=== PATIENT | female | born 1955 | race Caucasian/White ===

== ENCOUNTER 2017-05-09 11:43 | Inpatient (IN) | payer OTHER, MEDICARE ==
[~2017-05-09] VITALS: Ht 157.5 cm; Wt 88.2 kg
[~2017-05-09 11:43] MED LIST: CLON1TAB3; FLUO10CA48; FOLI1TAB7; HYDR-4332; LISI-461 PO; METH2.5T PO; PRED-301 PO
[2017-05-09] MEDS ORDERED: SODIUM CHLORIDE 0.9% 1000ML 1,000 ML IV STA (12:33)
[2017-05-09] MEDS ORDERED: ONDANSETRON INJ 2 MG/ML 2 ML VIAL IV STA (12:33)
[2017-05-09] MEDS ORDERED: MoRPHine SULFATE 10 MG/ML CARP/VIAL IV STA ×2 (12:33→14:19)
[2017-05-09 12:42] LABS: HEMATOCRIT 39.6 % (37-47); MEAN CELL VOLUME 94.3 fL (80-100); MEAN CORPUSCULAR HGB CONC 36.1 g/dl (32-36); MEAN PLATELET VOLUME 10.1 fL (7.4-10.4); PLATELET COUNT 264 K/uL (130-400)
[2017-05-09 12:58] LABS: BUN/CREATININE RATIO 28.6 (10-20); CALCIUM 9.1 mg/dl (8.5-10.1); CREATININE 0.74 mg/dl (0.60-1.20); POTASSIUM 3.1 mmol/L (3.5-5.1)
[2017-05-09] MEDS ORDERED: OPTIRAY 320 IV PRN (13:00)
[2017-05-09 13:18] LABS: BASO % 0.3 %; BASO ABS # 0.06 K/uL (0-0.2); COMPLETE YES; DOHLE BODIES 1+; EOS % 0.6 %; IG% 1.3 %; LYMPH % 16.4 %; MONO % 16.6 %; NEUT % 64.8 %; TOXIC GRANULATION 1+; VACUOLIZATION 1+
[2017-05-09] MEDS ORDERED: IBUP-103 PO (13:35)
[2017-05-09] MEDS ORDERED: FSMD/70 PO (13:35)
--- NOTE | 2017-05-09 14:29 | EMERGENCY ROOM VISIT NOTE ---
ED Visit Note First contact with patient: 11:54 I have seen and examined this patient with Anatoly Hagen and generally agree with the treatment plan as discussed. Current/Historical Medications Scheduled Alendronate/Cholecalciferol (Fosamax+D 70MG/2800 Iu), 1 TABLET PO WK Folic Acid (Folvite), 1 TAB .ROUTE DAILY Scheduled PRN Ibuprofen Tab (Advil), 400 MG PO BID PRN for Pain Miscellaneous Medications Lisinopril (Zestril), 10 MG PO Methotrexate (Methotrexate), 2.5 MG PO Prednisone (Prednisone), 5 MG PO Allergies Coded Allergies: No Known Allergies (Unverified , 05/09/17) Vital Signs Date Time Temp Pulse Resp B/P (MAP) Pulse Ox O2 Delivery O2 Flow Rate FiO2 05/09/17 13:02 98 16 158/83 98 Room Air 05/09/17 12:05 109 05/09/17 11:45 36.6 106 20 139/83 96 Room Air Laboratory Results 05/09/17 12:30 Red Blood Count 4.20, Mean Corpuscular Volume 94.3, Mean Corpuscular Hemoglobin 34.0, Mean Corpuscular Hemoglobin Concent 36.1, Mean Platelet Volume 10.1, Neutrophils (%) (Auto) 64.8, Lymphocytes (%) (Auto) 16.4, Monocytes (%) (Auto) 16.6, Eosinophils (%) (Auto) 0.6, Basophils (%) (Auto) 0.3, Neutrophils # (Auto ) 11.85, Lymphocytes # (Auto) 3.00, Monocytes # (Auto) 3.04, Eosinophils # (Auto ) 0.11, Basophils # (Auto) 0.06 05/09/17 12:30 Test 05/09/17 12:30 05/09/17 12:33 White Blood Count 18.30 K/uL (4.8-10.8) Red Blood Count 4.20 M/uL (4.2-5.4) Hemoglobin 14.3 g/dL (12.0-16.0) Hematocrit 39.6 % (37-47) Mean Corpuscular Volume 94.3 fL (80-100) Mean Corpuscular Hemoglobin 34.0 pg (25-34) Mean Corpuscular Hemoglobin Concent 36.1 g/dl (32-36) Platelet Count 264 K/uL (130-400) Mean Platelet Volume 10.1 fL (7.4-10.4) Neutrophils (%) (Auto) 64.8 % Lymphocytes (%) (Auto) 16.4 % Monocytes (%) (Auto) 16.6 % Eosinophils (%) (Auto) 0.6 % Basophils (%) (Auto) 0.3 % Neutrophils # (Auto) 11.85 K/uL (1.4-6.5) Lymphocytes # (Auto) 3.00 K/uL (1.2-3.4) Monocytes # (Auto) 3.04 K/uL (0.11-0.59) Eosinophils # (Auto) 0.11 K/uL (0-0.5) Basophils # (Auto) 0.06 K/uL (0-0.2) RDW Standard Deviation 42.1 fL (36.4-46.3) RDW Coefficient of Variation 12.3 % (11.5-14.5) Immature Granulocyte % (Auto) 1.3 % Immature Granulocyte # (Auto) 0.24 K/uL (0.00-0.02) Toxic Granulation 1+ Toxic Vacuolation 1+ Dohle Bodies 1+ Anion Gap 9.0 mmol/L (3-11) Est Creatinine Clear Calc Drug Dose 79.5 ml/min Estimated GFR () 100.6 Estimated GFR (Non- 86.8 BUN/Creatinine Ratio 28.6 (10-20) Calcium Level 9.1 mg/dl (8.5-10.1) Total Bilirubin 0.5 mg/dl (0.2-1) Direct Bilirubin 0.2 mg/dl (0-0.2) Aspartate Amino Transf (AST/SGOT) 21 U/L (15-37) Alanine Aminotransferase (ALT/SGPT) 24 U/L (12-78) Alkaline Phosphatase 121 U/L (45-117) Total Protein 7.0 gm/dl (6.4-8.2) Albumin 2.8 gm/dl (3.4-5.0) Lipase 63 U/L (73-393) Medications Administered Medications (Trade) Dose Ordered Sig/Maryam Route Start Time Stop Time Status Last Admin Dose Admin Sodium Chloride 1,000 ml @ 999 mls/hr Q1H1M STAT IV 05/09/17 12:33 05/09/17 13:33 DC 05/09/17 13:00 999 MLS/HR Ondansetron HCl (Zofran Inj) 4 mg NOW STAT IV 05/09/17 12:33 05/09/17 12:36 DC 05/09/17 12:57 4 MG Morphine Sulfate (MoRPHine SULFATE INJ) 6 mg NOW STAT IV 05/09/17 12:33 05/09/17 12:36 DC 05/09/17 12:58 6 MG Departure Information Referrals Maxwell Alvarado M.D. (PCP) Forms HOME CARE DOCUMENTATION FORM, IMPORTANT VISIT INFORMATION Patient Instructions [facility]
[2017-05-09 15:03] LABS: URINE APPEARANCE CLOUDY (CLEAR); URINE COLOR ORANGE; URINE EPITHELIAL CELL AUTO >30 /lpf (0-5); URINE NITRITE POS (NEG); URINE SPECIFIC GRAVITY 1.034 (1.000-1.030); UROBILINOGEN NEG (NEG)
[2017-05-09 15:06] LABS: MANUAL MICROSCOPIC REQUIRED? NO; REVIEW REQ? YES; URINE BILIRUBIN NEG (NEG)
[2017-05-09 15:14] LABS: URINE MUCUS PRESENT (NONE PRSENT)
[2017-05-09] MEDS ORDERED: SODIUM CHLORIDE 0.9% 1000ML 1,000 ML IV ONE (15:15)
--- NOTE | 2017-05-09 15:16 | DIAGNOSTIC IMAGING REPORT ---
ABDOMEN AND PELVIS CT WITH IV AND ORAL CONTRAST CT DOSE: 754.61 mGy.cm HISTORY: Fever. Generalized abdominal pain. TECHNIQUE: Multiaxial CT images of the abdomen and pelvis were performed following the use of intravenous and oral contrast. A dose lowering technique was utilized adhering to the principles of ALARA. COMPARISON STUDY: None. FINDINGS: Bibasilar linear densities consistent with subsegmental atelectasis. No pneumoperitoneum. No pneumatosis. Postoperative changes within the proximal left femur. Small fat-containing right-sided Bochdalek hernia. Hepatic steatosis. The gallbladder, spleen, adrenal glands, pancreas, and right kidney are unremarkable. There is a 6 mm hypodense lesion within the left kidney which is too small to characterize. No hydronephrosis. No retroperitoneal lymphadenopathy. Moderate calcified plaque within the normal caliber abdominal aorta. No evidence for bowel obstruction. Normal appendix. The bladder is unremarkable. Hysterectomy. Colonic diverticulosis. Mild diffuse thickening throughout the majority of the colon from the cecum to the splenic flexure. There appears be mild mucosal hyperenhancement within the descending colon and sigmoid colon also likely representing an early inflammatory process. Therefore, this is consistent with a pancolitis. IMPRESSION: 1. Pancolitis. This is likely due to an infectious or inflammatory process. 2. Normal appendix. 3. No evidence for bowel obstruction. 4. Hepatic steatosis. 5. Hysterectomy. Electronically signed by: Kevin Bajwa M.D. 05/09/2017 3:15 PM Dictated Date/Time: 05/09/2017 3:09 PM
[2017-05-09] MEDS ORDERED: CEFTRIAXONE SOD INJ 1 GM ADDVIAL IV STA (15:35)
[2017-05-09] MEDS ORDERED: METRONIDAZOLE 500MG / 100ML NSS IV STA (15:35)
[2017-05-09] MEDS ORDERED: ONDANSETRON INJ 2 MG/ML 2 ML VIAL IV PRN (16:30)
[2017-05-09] MEDS ORDERED: ALEN70TA4 PO (16:39)
[2017-05-09] MEDS ORDERED: MULT-506 PO (16:39)
[2017-05-09] MEDS ORDERED: ONDA4TAB65 PO (16:39)
[2017-05-09] MEDS ORDERED: IMD/2 PO (16:39)
[2017-05-09] MEDS ORDERED: ABAT250I (16:39)
[2017-05-09] MEDS ORDERED: LSN/10125 PO (16:39)
[2017-05-09 17:27] LABS: MAGNESIUM 2.1 mg/dl (1.8-2.4)
[2017-05-09 17:45] VITALS: BP 160/83; PULSE 98; TEMP 36.8; O2SAT 94
[2017-05-09] MEDS ORDERED: MoRPHine SULFATE 4 MG/ML 1 ML CARP\\VIAL IV PRN (17:45)
--- NOTE | 2017-05-09 17:47 | History and Physical ---
History & Physical Date & Time of Service: May 09, 2017 ~ 16:00 Chief Complaint: Abdominal Pain, Diarrhea, Fever Primary Care Physician: Maxwell Alvarado M.D. History of Present Illness 61 year old female who presents to the ER with abdominal pain, diarrhea, and fever. Patient reports symptoms have been present for the past 6 days. She was seen by her PCP a few days ago who prescribed her Zofran and Imodium. She has not had any relief in her symptoms. Patient reports her appetite has been poor due to the abdominal pain and she denies nausea and vomiting. Reports that anything she would take anything by mouth she would have crampy abdominal pain and diarrhea. She reports her temperature at her PCP appointment was 101. She reports diarrhea has been watery and she denies BRBPR and dark tarry stools. She denies any recent travel or sick contacts. Patient reports she has been having intermittent chest pain for the past several months. She reports it is located under her left breast. She describes it as sharp. She reports sometimes it occurs when bending over, sometimes at rest, and sometimes with exertion. She reports it resolves on its own quickly. She denies shortness of breath, lower extremity edema, and orthopnea. No lightheadedness, dizziness, diaphoresis , or syncope. She denies any urinary symptoms. In the ER, patient had a CT abd/ pelvis that is showing pancolitis. WBC 18K, HR is in the low 100s. BP is stable and she is afebrile. She was treated with IV Rocephin, IV Cipro, IVF, IV Morphine, and IV Zofran. Of note during exam, patient is tearful at times reporting high amounts of stress with taking care of her mother at home. She denies suicidal or homicidal ideations. Past Medical/Surgical History Medical Problems: (1) Depression with anxiety Status: Chronic (2) HTN (hypertension) Status: Chronic (3) Osteoarthritis Status: Chronic (4) Osteoporosis Status: Chronic (5) Rheumatoid arthritis Status: Chronic Surgical Problems: (1) H/O shoulder surgery Permanent Comment: left Status: Chronic (2) History of hysterectomy Status: Chronic (3) History of total bilateral knee replacement Status: Chronic Family History AICD (automatic internal cardiac defibrillator) BROTHER CVA MOTHER FH: thyroid cancer BROTHER Immune disorder SISTER Social History Smoking Status: Former Smoker Alcohol Use: occasionally Immunizations History of Influenza Vaccine: Yes Influenza Vaccine Date: Jul 04, 2016 History of Tetanus Vaccine?: Yes Tetanus Immunization Date: Oct 01, 2013 History of Pneumococcal: Yes Pneumococcal Date: May 15, 2015 Allergies Coded Allergies: No Known Allergies (Unverified , 05/09/17) Home Medications Scheduled Abatacept (Orencia), 1 DOSE MONTHLY Alendronate Sodium (Fosamax), 1 TAB PO WK Folic Acid (Folvite), 1 TAB .ROUTE DAILY Hctz/Lisinopril (Lisinopril/Hctz 10/12.5 Mg), 1 TAB PO DAILY Methotrexate (Methotrexate), 3 TABS PO WK Multivitamin (Multivitamin), 1 TAB PO DAILY Prednisone (Prednisone), 5 MG PO DAILY Scheduled PRN Loperamide Hcl (Imodium), 2 MG PO for Diarrhea Ondansetron Hcl (Zofran), 4 MG PO Q6 PRN for Nausea Review of Systems ROS per HPI, all other systems reviewed and negative Physical Exam Vital Signs Date Time Temp Pulse Resp B/P (MAP) Pulse Ox O2 Delivery O2 Flow Rate FiO2 05/09/17 16:32 92 14 137/65 95 Room Air 05/09/17 16:08 94 20 126/97 94 Room Air 05/09/17 14:28 102 17 170/86 94 Room Air 05/09/17 13:02 98 16 158/83 98 Room Air 05/09/17 12:05 109 05/09/17 11:45 36.6 106 20 139/83 96 Room Air General Appearance: no apparent distress (tearful at times during exam) Head: normocephalic, atraumatic Eyes: normal inspection, sclerae normal ENT: hearing grossly normal Neck: supple, no JVD Respiratory/Chest: lungs clear, normal breath sounds, no respiratory distress Cardiovascular: regular rate, rhythm, no edema Abdomen/GI: soft, + tenderness (generally tender, more tender in the mid abdomen), + abnormal bowel sounds (hyperactive) Extremities/Musculoskelatal: normal inspection, no calf tenderness Neurologic/Psych: no motor/sensory deficits, alert, oriented x 3, + depressed affect (tearful at times during exam) Skin: normal color, warm/dry Diagnostics Laboratory Results Results Past 24 Hours Test 05/09/17 12:30 05/09/17 14:35 05/09/17 16:32 05/09/17 16:56 Range/Units White Blood Count 18.30 4.8-10.8 K/uL Red Blood Count 4.20 4.2-5.4 M/uL Hemoglobin 14.3 12.0-16.0 g/dL Hematocrit 39.6 37-47 % Mean Corpuscular Volume 94.3 80-100 fL Mean Corpuscular Hemoglobin 34.0 25-34 pg Mean Corpuscular Hemoglobin Concent 36.1 32-36 g/dl Platelet Count 264 130-400 K/uL Mean Platelet Volume 10.1 7.4-10.4 fL Neutrophils (%) (Auto) 64.8 % Lymphocytes (%) (Auto) 16.4 % Monocytes (%) (Auto) 16.6 % Eosinophils (%) (Auto) 0.6 % Basophils (%) (Auto) 0.3 % Neutrophils # (Auto) 11.85 1.4-6.5 K/uL Lymphocytes # (Auto) 3.00 1.2-3.4 K/uL Monocytes # (Auto) 3.04 0.11-0.59 K/uL Eosinophils # (Auto) 0.11 0-0.5 K/uL Basophils # (Auto) 0.06 0-0.2 K/uL RDW Standard Deviation 42.1 36.4-46.3 fL RDW Coefficient of Variation 12.3 11.5-14.5 % Immature Granulocyte % (Auto) 1.3 % Immature Granulocyte # (Auto) 0.24 0.00-0.02 K/uL Toxic Granulation 1+ Toxic Vacuolation 1+ Dohle Bodies 1+ Sodium Level 135 136-145 mmol/L Potassium Level 3.1 3.5-5.1 mmol/L Chloride Level 98 98-107 mmol/L Carbon Dioxide Level 28 21-32 mmol/L Anion Gap 9.0 3-11 mmol/L Blood Urea Nitrogen 21 7-18 mg/dl Creatinine 0.74 0.60-1.20 mg/dl Est Creatinine Clear Calc Drug Dose 79.5 ml/min Estimated GFR () 100.6 Estimated GFR (Non- 86.8 BUN/Creatinine Ratio 28.6 10-20 Random Glucose 102 70-99 mg/dl Calcium Level 9.1 8.5-10.1 mg/dl Total Bilirubin 0.5 0.2-1 mg/dl Direct Bilirubin 0.2 0-0.2 mg/dl Aspartate Amino Transf (AST/SGOT) 21 15-37 U/L Alanine Aminotransferase (ALT/SGPT) 24 12-78 U/L Alkaline Phosphatase 121 45-117 U/L Total Protein 7.0 6.4-8.2 gm/dl Albumin 2.8 3.4-5.0 gm/dl Lipase 63 73-393 U/L Urine Color ORANGE Urine Appearance CLOUDY CLEAR Urine pH 6.0 4.5-7.5 Urine Specific [place] 1.034 1.000-1.030 Urine Protein 2+ NEG Urine Glucose (UA) NEG NEG Urine Ketones 4+ NEG Urine Occult Blood NEG NEG Urine Nitrite POS NEG Urine Bilirubin NEG NEG Urine Urobilinogen NEG NEG Urine Leukocyte Esterase TRACE NEG Urine WBC (Auto) 5-10 0-5 /hpf Urine RBC (Auto) 5-10 0-4 /hpf Urine Hyaline Casts (Auto) 5-10 0-5 /lpf Urine Epithelial Cells (Auto) >30 0-5 /lpf Urine Bacteria (Auto) NEG NEG Urine Renal Epithelial Cells 5-10 0-5 /lpf Urine Crystals CALCIUM OXALATE NONE PRSENT Urine Pathogenic Casts 0 /lpf Urine Mucus PRESENT NONE PRSENT Creatine Kinase MB Ratio 0-3.0 Lactic Acid Level 1.2 0.4-2.0 mmol/L Magnesium Level 2.1 1.8-2.4 mg/dl Creatine Kinase MB 1.0 0.5-3.6 ng/ml Troponin I < 0.015 0-0.045 ng/ml Microbiology Results 05/09/17 Blood Culture, Received Pending 05/09/17 Blood Culture, Received Pending Diagnostic Radiology CT ABD/PELVIS IMPRESSION: 1. Pancolitis. This is likely due to an infectious or inflammatory process. 2. Normal appendix. 3. No evidence for bowel obstruction. 4. Hepatic steatosis. 5. Hysterectomy. Impression Assessment and Plan SEPSIS DUE TO PANCOLITIS - admit to tele - patient presenting with abdominal pain and diarrhea x 6 days; CT in the ED showing pancolitis - meeting sepsis criteria with WBC 18K, tachycardia; BP stable, afebrile, lactic acid WNL - s/p Rocephin and Flagyl in the ED; will continue with IV Cipro and Flagyl for now - likely infectious in nature with fevers and leukocytosis - stool studies ordered - patient reports colonoscopy several years ago at [facility] [place] in [place], [place] - unremarkable per patient - symptomatic care with IVF, antiemetics, and PRN pain meds - clear liquid diet - GI consult HYPOKALEMIA - mild, due to GI loss with persistent diarrhea - replace, follow up labs - Mg+ WNL CHEST PAIN - likely MSK vs. anxiety - will check EKG, serial cardiac enzymes, resting echo HTN - BP controlled - will continue Lisinopril, holding HCTZ due to clinical dehydration HX RA - holding methotrexate due to infection - continue Prednisone; no role for stress dose steroids at this time ANXIETY, DEPRESSION - patient tearful during exam about high stress due to taking care of her mother - no suicidal thoughts - offered mental health consult, patient declined DVT PROPHYLAXIS - SQ Lovenox DISPO - In my clinical judgment this beneficiary meets acute admission criteria, established by [facility], that includes being hospitalized through two midnights. ADDENDUM: Saw/examined the patient in room 283 +diarrhea, abdominal cramping noted prior to arrival for about a week no travel history, no unusual foods likely infectious colitis secondary to leukocytosis and tachycardia stool cultures pending Cipro, Flagyl, IVFs immunosuppressed due to chronic methotrexate and steroid use for RA, hold methotrexate and continue prednisone GI consult for further input VTE Prophylaxis VTE Risk Assessment Done? Y/N: Yes Risk Level: Moderate
[2017-05-09] MEDS: SODIUM CHLORIDE 0.9% 1000ML 1,000 ML IV SCH ×2 (18:58→23:53)
[2017-05-09] MEDS: POTASSIUM CHLR 10 MEQ / WTR 10 MEQ in PREMIXED WATER 100 ML IV SCH ×4 (18:59→22:51)
[2017-05-09] MEDS ORDERED: POTASSIUM CHLORIDE 20 MEQ TABCR PO ONE (19:00)
[2017-05-09 19:03] LABS: PROTHROMBIN TIME (PATIENT) 10.7 SECONDS (9.0-12.0)
[2017-05-09] MEDS: CIPROFLOXACIN / D5W 400 MG in PREMIXED IN D5W 200 ML IV SCH (20:07)
[2017-05-09] MEDS: ENOXAPARIN 40 MG/0.4 ML SYR SC SCH (20:12)
[2017-05-09 20:18] VITALS: BP 160/83; PULSE 98; TEMP 36.8; O2SAT 94; Ht 157.5 cm; Wt 88.2 kg
[2017-05-09] MEDS: METRONIDAZOLE / NSS 500 MG in PREMIXED NSS 100 ML IV SCH (23:53)
[2017-05-09 23:56] VITALS: BP 169/87; PULSE 104; TEMP 37; O2SAT 95
[2017-05-10] VITALS (9 sets, daily range): BP systolic 117–150; BP diastolic 70–81; PULSE 86–97; TEMP 36.5–37.2; O2SAT 94–96
[2017-05-10] MEDS: LOPERAMIDE HCL 2 MG CAP PO PRN ×6 (03:59→22:41)
[2017-05-10 04:50] LABS: HEMATOCRIT 32.6 % (37-47); MEAN CELL VOLUME 94.5 fL (80-100); MEAN CORPUSCULAR HEMOGLOBIN 32.8 pg (25-34); MEAN CORPUSCULAR HGB CONC 34.7 g/dl (32-36); MEAN PLATELET VOLUME 9.7 fL (7.4-10.4); PLATELET COUNT 239 K/uL (130-400); RED BLOOD COUNT 3.45 M/uL (4.2-5.4); WHITE BLOOD COUNT 14.81 K/uL (4.8-10.8)
[2017-05-10 05:03] LABS: BLOOD UREA NITROGEN 13 mg/dl (7-18); CALCIUM 7.7 mg/dl (8.5-10.1); CARBON DIOXIDE 26 mmol/L (21-32); CHLORIDE 106 mmol/L (98-107); CREATININE 0.42 mg/dl (0.60-1.20); GLUCOSE 87 mg/dl (70-99); POTASSIUM 3.7 mmol/L (3.5-5.1); SODIUM 137 mmol/L (136-145)
[2017-05-10] MEDS: MULTIVITAMIN TAB PO SCH (07:53)
[2017-05-10] MEDS: LISINOPRIL 10 MG TAB PO SCH (07:53)
[2017-05-10] MEDS: CIPROFLOXACIN / D5W 400 MG in PREMIXED IN D5W 200 ML IV SCH ×2 (07:54→20:23)
[2017-05-10] MEDS: SODIUM CHLORIDE 0.9% 1000ML 1,000 ML IV SCH ×2 (07:54→16:21)
[2017-05-10] MEDS: METRONIDAZOLE / NSS 500 MG in PREMIXED NSS 100 ML IV SCH ×3 (07:54→23:30)
[2017-05-10] MEDS: ACETAMINOPHEN 325 MG TAB PO PRN (07:59)
--- NOTE | 2017-05-10 10:49 | Progress Note ---
Subjective Date of Service: May 10, 2017. Subjective Pt evaluation today including: conversation w/ patient, physical exam, lab review, review of studies, review of inpatient medication list Saw/examined the patient in room 283 +diarrhea throughout the night; abdominal cramping no fevers/chills, no shortness of breath or chest pain Review of Systems Constitutional: No fever, No chills Respiratory: No shortness of breath Cardiac: No chest pain Abdomen: + pain, + diarrhea, No nausea, No vomiting Medications Current Inpatient Medications Medications (Trade) Dose Ordered Sig/Maryam Route Start Time Stop Time Status Last Admin Dose Admin Ioversol (Optiray 320) 125 ml UD PRN IV 05/09/17 13:00 05/13/17 12:59 Enoxaparin Sodium (Lovenox Inj) 40 mg Q24H SC 05/09/17 20:00 06/08/17 19:59 05/09/17 20:12 40 MG Sodium Chloride 1,000 ml @ 125 mls/hr Q8H IV 05/09/17 16:29 06/08/17 16:28 05/10/17 07:54 125 MLS/HR Acetaminophen (Tylenol Tab) 650 mg Q4H PRN PO 05/09/17 16:30 06/08/17 16:29 05/10/17 07:59 650 MG Ondansetron HCl (Zofran Inj) 4 mg Q6H PRN IV 05/09/17 16:30 06/08/17 16:29 Ciprofloxacin/ Dextrose 400 mg/ Prmx 200 ml @ 100 mls/hr Q12@0800,2000 IV 05/09/17 20:00 05/19/17 19:59 05/10/17 07:54 100 MLS/HR Metronidazole 500 mg/Prmx 100 ml @ 100 mls/hr Q8H IV 05/10/17 00:00 05/20/17 00:00 05/10/17 07:54 100 MLS/HR Folic Acid (Folvite Tab) 1 mg DAILY PO 05/10/17 09:00 06/09/17 08:59 05/10/17 07:53 1 MG Multivitamins (Multivitamin Tab) 1 tab DAILY PO 05/10/17 09:00 06/09/17 08:59 05/10/17 07:53 1 TAB Prednisone (PredniSONE TAB) 5 mg DAILY PO 05/10/17 09:00 06/09/17 08:59 05/10/17 07:53 5 MG Lisinopril (Zestril Tab) 10 mg QAM PO 05/10/17 09:00 06/09/17 08:59 05/10/17 07:53 10 MG Morphine Sulfate (MoRPHine SULFATE INJ) 3 mg Q4H PRN IV 05/09/17 17:45 05/23/17 17:44 Loperamide HCl (Imodium Cap) 2 mg UD PRN PO 05/10/17 01:00 06/09/17 00:59 05/10/17 08:08 2 MG Objective Vital Signs Date Time Temp Pulse Resp B/P (MAP) Pulse Ox O2 Delivery O2 Flow Rate FiO2 05/10/17 08:01 36.9 91 18 117/70 (86) 94 Room Air 05/10/17 08:00 95 Room Air 05/10/17 04:00 36.8 97 18 147/76 (99) 95 Room Air 05/10/17 04:00 Room Air 05/10/17 00:00 Room Air 05/09/17 23:56 37.0 104 17 169/87 (114) 95 Room Air 05/09/17 20:18 36.8 98 20 160/83 94 Room Air 05/09/17 17:45 36.8 98 20 160/83 (108) 94 Room Air 05/09/17 16:32 92 14 137/65 95 Room Air 05/09/17 16:08 94 20 126/97 94 Room Air 05/09/17 14:28 102 17 170/86 94 Room Air 05/09/17 13:02 98 16 158/83 98 Room Air 05/09/17 12:05 109 05/09/17 11:45 36.6 106 20 139/83 96 Room Air Physical Exam General Appearance: no apparent distress Respiratory/Chest: lungs clear, normal breath sounds, no respiratory distress, no accessory muscle use Cardiovascular: regular rate, rhythm, no edema, no murmur Abdomen: non tender, soft, + abnormal bowel sounds (hyperactive bowel sounds) Laboratory Results Last 24 Hours Test 05/09/17 12:30 05/09/17 14:35 05/09/17 16:32 05/09/17 16:56 White Blood Count 18.30 K/uL Red Blood Count 4.20 M/uL Hemoglobin 14.3 g/dL Hematocrit 39.6 % Mean Corpuscular Volume 94.3 fL Mean Corpuscular Hemoglobin 34.0 pg Mean Corpuscular Hemoglobin Concent 36.1 g/dl Platelet Count 264 K/uL Mean Platelet Volume 10.1 fL Neutrophils (%) (Auto) 64.8 % Lymphocytes (%) (Auto) 16.4 % Monocytes (%) (Auto) 16.6 % Eosinophils (%) (Auto) 0.6 % Basophils (%) (Auto) 0.3 % Neutrophils # (Auto) 11.85 K/uL Lymphocytes # (Auto) 3.00 K/uL Monocytes # (Auto) 3.04 K/uL Eosinophils # (Auto) 0.11 K/uL Basophils # (Auto) 0.06 K/uL RDW Standard Deviation 42.1 fL RDW Coefficient of Variation 12.3 % Immature Granulocyte % (Auto) 1.3 % Immature Granulocyte # (Auto) 0.24 K/uL Toxic Granulation 1+ Toxic Vacuolation 1+ Dohle Bodies 1+ Sodium Level 135 mmol/L Potassium Level 3.1 mmol/L Chloride Level 98 mmol/L Carbon Dioxide Level 28 mmol/L Anion Gap 9.0 mmol/L Blood Urea Nitrogen 21 mg/dl Creatinine 0.74 mg/dl Est Creatinine Clear Calc Drug Dose 79.5 ml/min Estimated GFR () 100.6 Estimated GFR (Non- 86.8 BUN/Creatinine Ratio 28.6 Random Glucose 102 mg/dl Calcium Level 9.1 mg/dl Total Bilirubin 0.5 mg/dl Direct Bilirubin 0.2 mg/dl Aspartate Amino Transf (AST/SGOT) 21 U/L Alanine Aminotransferase (ALT/SGPT) 24 U/L Alkaline Phosphatase 121 U/L Total Protein 7.0 gm/dl Albumin 2.8 gm/dl Lipase 63 U/L Urine Color ORANGE Urine Appearance CLOUDY Urine pH 6.0 Urine Specific [place] 1.034 Urine Protein 2+ Urine Glucose (UA) NEG Urine Ketones 4+ Urine Occult Blood NEG Urine Nitrite POS Urine Bilirubin NEG Urine Urobilinogen NEG Urine Leukocyte Esterase TRACE Urine WBC (Auto) 5-10 /hpf Urine RBC (Auto) 5-10 /hpf Urine Hyaline Casts (Auto) 5-10 /lpf Urine Epithelial Cells (Auto) >30 /lpf Urine Bacteria (Auto) NEG Urine Renal Epithelial Cells 5-10 /lpf Urine Crystals CALCIUM OXALATE Urine Pathogenic Casts /lpf Urine Mucus PRESENT Creatine Kinase MB Ratio Lactic Acid Level 1.2 mmol/L Magnesium Level 2.1 mg/dl Creatine Kinase MB 1.0 ng/ml Troponin I < 0.015 ng/ml Test 05/09/17 18:31 05/09/17 22:16 05/10/17 04:29 Prothrombin Time 10.7 SECONDS Prothromb Time International Ratio 1.0 Creatine Kinase MB 1.4 ng/ml 1.2 ng/ml Creatine Kinase MB Ratio Troponin I < 0.015 ng/ml < 0.015 ng/ml White Blood Count 14.81 K/uL Red Blood Count 3.45 M/uL Hemoglobin 11.3 g/dL Hematocrit 32.6 % Mean Corpuscular Volume 94.5 fL Mean Corpuscular Hemoglobin 32.8 pg Mean Corpuscular Hemoglobin Concent 34.7 g/dl RDW Standard Deviation 43.5 fL RDW Coefficient of Variation 12.6 % Platelet Count 239 K/uL Mean Platelet Volume 9.7 fL Sodium Level 137 mmol/L Potassium Level 3.7 mmol/L Chloride Level 106 mmol/L Carbon Dioxide Level 26 mmol/L Anion Gap 5.0 mmol/L Blood Urea Nitrogen 13 mg/dl Creatinine 0.42 mg/dl Est Creatinine Clear Calc Drug Dose 140.1 ml/min Estimated GFR () 127.3 Estimated GFR (Non- 109.9 BUN/Creatinine Ratio 30.0 Random Glucose 87 mg/dl Calcium Level 7.7 mg/dl Magnesium Level 2.0 mg/dl Assessment and Plan Sepsis secondary to Infectious Colitis C. diff negative stool studies pending leukocytosis - improving afebrile tachycardia improving continue IVFs, supportive care IV abx. Cipro + Flagyl GI consultation pending Hypokalemia - resolved due to diarrhea Chest Pain, unlikely ACS cardiac enzymes negative, echo pending HTN BP controlled will continue Lisinopril, holding HCTZ due to clinical dehydration Hx. of RA holding methotrexate due to infection continue Prednisone; no role for stress dose steroids at this time Depressed Mood - patient tearful during exam about high stress due to taking care of her mother - no suicidal thoughts - offered mental health consult, patient declined DVT ppx Lovenox FULL CODE
--- NOTE | 2017-05-10 11:19 | Gastrointestinal Consultation ---
Gastrointestinal Consultation Date of Consultation: May 10, 2017 History of Present Illness Patient is a 61 year old female whom I was asked to see for diarrhea and imaging consistent with estrada-colitis. She reports that she has had 6- 7 days of diarrhea, cramping, and nausea without vomiting or bad pain that was acute onset, no recent sick contacts, abx , or food or water exposures. Prior to this symptoms her normal bowel regimen was once daily. She denies any recent exacerbating factors such as abx, medications, herbals, or over the counter meds. She has not had blood in her stool including melena, or hematochezia, she apparently has had a fever this week and was seen by her pcp and given zofran and imodium. Upon presentation here, she had a WBC ct of [address] scan revealing estrada-colitis. Feels well today after therapeutic modalities of IV abx and imodium. Stool studies were negative for C-diff. Family History AICD (automatic internal cardiac defibrillator) BROTHER CVA MOTHER FH: thyroid cancer BROTHER Immune disorder SISTER Social History Smoking Status: Former Smoker Allergies Coded Allergies: No Known Allergies (Unverified , 05/09/17) Current Medications Home Meds and Scripts Medications Dose Route/Sig Max Daily Dose Days Date Category Multivitamin (Multivitamins) Tab 1 Tab PO DAILY 05/09/17 Reported Orencia (Abatacept) 250 Mg Inj 1 Dose MONTHLY 05/09/17 Reported Fosamax (Alendronate Sodium) 70 Mg Tab 1 Tab PO WK 28 05/09/17 Reported Lisinopril/Hctz 10/12.5 Mg (HCTZ/Lisinopril) 1 Ea Tab 1 Tab PO DAILY 30 05/09/17 Reported Imodium (Loperamide HCl) 2 Mg Cap 2 Mg PO PRN 05/09/17 Reported Zofran (Ondansetron Hcl) 4 Mg Tab 4 Mg PO Q6 PRN 05/09/17 Reported Folvite (Folic Acid) 1 Mg Tab 1 Tab .ROUTE DAILY 90 05/23/15 Reported Prednisone 5 Mg Tab 5 Mg PO DAILY 05/23/15 Reported Methotrexate 2.5 Mg Tab 3 Tabs PO WK 05/23/15 Reported Review of Systems Constitutional: + see HPI, No fever, No chills, No sweats, No weight loss, No weakness, No fatigue, No problem reported Eyes: No see HPI, No worsening of vision, No eye pain, No redness, No discharge , No diplopia, No problem reported ENT: No see HPI, No hearing loss, No unusual epistaxis, No nasal symptoms, No sore throat, No tinnitus, No dental problems, No trouble swallowing, No pain on swallowing, No problem reported Respiratory: No see HPI, No cough, No sputum, No wheezing, No shortness of breath, No dyspnea on exertion, No dyspnea at rest, No hemoptysis, No problem reported Abdomen: + see HPI Female : No see HPI, No dysuria, No urinary frequency, No hematuria, No incontinence, No abnormal vaginal bleeding, No vaginal discharge, No problem reported Neuro: No see HPI, No memory loss, No paralysis, No weakness, No numbness/ tingling, No vertigo, No balance problems, No problem reported Psych: No see HPI, No depression symptoms, No anhedonism, No anxiety, No insomnia, No substance abuse, No problem reported Physical Exam Date Time Temp Pulse Resp B/P (MAP) Pulse Ox O2 Delivery O2 Flow Rate FiO2 05/10/17 08:01 36.9 91 18 117/70 (86) 94 Room Air 05/10/17 08:00 95 Room Air 05/10/17 04:00 36.8 97 18 147/76 (99) 95 Room Air 05/10/17 04:00 Room Air 05/10/17 00:00 Room Air 05/09/17 23:56 37.0 104 17 169/87 (114) 95 Room Air 05/09/17 20:18 36.8 98 20 160/83 94 Room Air 05/09/17 17:45 36.8 98 20 160/83 (108) 94 Room Air 05/09/17 16:32 92 14 137/65 95 Room Air 05/09/17 16:08 94 20 126/97 94 Room Air 05/09/17 14:28 102 17 170/86 94 Room Air 05/09/17 13:02 98 16 158/83 98 Room Air 05/09/17 12:05 109 05/09/17 11:45 36.6 106 20 139/83 96 Room Air General Appearance: WD/WN, no apparent distress, + pertinent finding (walking unassisted in room) Neck: supple Respiratory/Chest: chest non-tender Cardiovascular: regular rate, rhythm, no edema Abdomen: normal bowel sounds, soft Extremities: normal range of motion Laboratory Results Last 24 Hours Test 05/09/17 12:30 05/09/17 14:35 05/09/17 16:32 05/09/17 16:56 White Blood Count 18.30 K/uL Red Blood Count 4.20 M/uL Hemoglobin 14.3 g/dL Hematocrit 39.6 % Mean Corpuscular Volume 94.3 fL Mean Corpuscular Hemoglobin 34.0 pg Mean Corpuscular Hemoglobin Concent 36.1 g/dl Platelet Count 264 K/uL Mean Platelet Volume 10.1 fL Neutrophils (%) (Auto) 64.8 % Lymphocytes (%) (Auto) 16.4 % Monocytes (%) (Auto) 16.6 % Eosinophils (%) (Auto) 0.6 % Basophils (%) (Auto) 0.3 % Neutrophils # (Auto) 11.85 K/uL Lymphocytes # (Auto) 3.00 K/uL Monocytes # (Auto) 3.04 K/uL Eosinophils # (Auto) 0.11 K/uL Basophils # (Auto) 0.06 K/uL RDW Standard Deviation 42.1 fL RDW Coefficient of Variation 12.3 % Immature Granulocyte % (Auto) 1.3 % Immature Granulocyte # (Auto) 0.24 K/uL Toxic Granulation 1+ Toxic Vacuolation 1+ Dohle Bodies 1+ Sodium Level 135 mmol/L Potassium Level 3.1 mmol/L Chloride Level 98 mmol/L Carbon Dioxide Level 28 mmol/L Anion Gap 9.0 mmol/L Blood Urea Nitrogen 21 mg/dl Creatinine 0.74 mg/dl Est Creatinine Clear Calc Drug Dose 79.5 ml/min Estimated GFR () 100.6 Estimated GFR (Non- 86.8 BUN/Creatinine Ratio 28.6 Random Glucose 102 mg/dl Calcium Level 9.1 mg/dl Total Bilirubin 0.5 mg/dl Direct Bilirubin 0.2 mg/dl Aspartate Amino Transf (AST/SGOT) 21 U/L Alanine Aminotransferase (ALT/SGPT) 24 U/L Alkaline Phosphatase 121 U/L Total Protein 7.0 gm/dl Albumin 2.8 gm/dl Lipase 63 U/L Urine Color ORANGE Urine Appearance CLOUDY Urine pH 6.0 Urine Specific [place] 1.034 Urine Protein 2+ Urine Glucose (UA) NEG Urine Ketones 4+ Urine Occult Blood NEG Urine Nitrite POS Urine Bilirubin NEG Urine Urobilinogen NEG Urine Leukocyte Esterase TRACE Urine WBC (Auto) 5-10 /hpf Urine RBC (Auto) 5-10 /hpf Urine Hyaline Casts (Auto) 5-10 /lpf Urine Epithelial Cells (Auto) >30 /lpf Urine Bacteria (Auto) NEG Urine Renal Epithelial Cells 5-10 /lpf Urine Crystals CALCIUM OXALATE Urine Pathogenic Casts /lpf Urine Mucus PRESENT Creatine Kinase MB Ratio Lactic Acid Level 1.2 mmol/L Magnesium Level 2.1 mg/dl Creatine Kinase MB 1.0 ng/ml Troponin I < 0.015 ng/ml Test 05/09/17 18:31 05/09/17 22:16 05/10/17 04:29 Prothrombin Time 10.7 SECONDS Prothromb Time International Ratio 1.0 Creatine Kinase MB 1.4 ng/ml 1.2 ng/ml Creatine Kinase MB Ratio Troponin I < 0.015 ng/ml < 0.015 ng/ml White Blood Count 14.81 K/uL Red Blood Count 3.45 M/uL Hemoglobin 11.3 g/dL Hematocrit 32.6 % Mean Corpuscular Volume 94.5 fL Mean Corpuscular Hemoglobin 32.8 pg Mean Corpuscular Hemoglobin Concent 34.7 g/dl RDW Standard Deviation 43.5 fL RDW Coefficient of Variation 12.6 % Platelet Count 239 K/uL Mean Platelet Volume 9.7 fL Sodium Level 137 mmol/L Potassium Level 3.7 mmol/L Chloride Level 106 mmol/L Carbon Dioxide Level 26 mmol/L Anion Gap 5.0 mmol/L Blood Urea Nitrogen 13 mg/dl Creatinine 0.42 mg/dl Est Creatinine Clear Calc Drug Dose 140.1 ml/min Estimated GFR () 127.3 Estimated GFR (Non- 109.9 BUN/Creatinine Ratio 30.0 Random Glucose 87 mg/dl Calcium Level 7.7 mg/dl Magnesium Level 2.0 mg/dl Impression Patient is a 61 year old female with acute diarrheal illness Plan Symptoms are likely infectious in nature given timeframe, WBC count, and lack of alarm symptoms. -Continue abx with cirpro and flagyll -Follow stool cx, however, etiology is likely viral -Continue symptomatic care -F/U with PCP at d/c and suggest colonoscopy after symptoms have resolved or within 1 mo.
--- NOTE | 2017-05-10 15:56 | EMERGENCY ROOM VISIT NOTE ---
ED Visit Note First contact with patient: 11:54 Chief Complaint: Abdominal pain. History of Present Illness: Ms. Brady is a 61 year-old white female who ambulates into the ED accompanied by female friend complaining of lower abdominal pain. Historically patient reports significant past gastrointestinal disorders and is status post hysterectomy. Patient reports a acute onset of bilateral quadrant abdominal pain that started approximately 5 days ago. Since that time the pain has been constant and increasing in severity. The pain is currently described as cramping, without side prominence. The pain is nonradiating. Her pain worsens after she eats. She has not identified any alleviating factors related to the pain. She currently rates her discomfort 05/01. She has not taken any medications for pain prior to arrival at the hospital. Associated with her pain she reports she has had intermittent fevers, constant diarrhea of watery stools predominantly after eating, nausea but no vomiting. Patient denies sweats, skin eruptions, skin color changes, upper respiratory tract symptoms, shortness of breath, chest pain, constipation, rectal bleeding, black/tarry stools, urinary symptoms, hematuria, vaginal bleeding, vaginal discharge, back/flank pain. Review of Systems: As noted above in history of present illness. All body systems were reviewed and found to be negative as noted above. Past Medical History: Hypertension, osteoarthritis, rheumatoid arthritis, osteoporosis and status post unspecified shoulder surgery and bilateral knee arthroplasties. Current Medications: Medications Dose Route/Sig Max Daily Dose Days Date Category Multivitamin (Multivitamins) Tab 1 Tab PO DAILY 05/09/17 Reported Orencia (Abatacept) 250 Mg Inj 1 Dose MONTHLY 05/09/17 Reported Fosamax (Alendronate Sodium) 70 Mg Tab 1 Tab PO WK 28 05/09/17 Reported Lisinopril/Hctz /.5 Mg (HCTZ/Lisinopril) 1 Ea Tab 1 Tab PO DAILY 30 05/09/17 Reported Imodium (Loperamide HCl) 2 Mg Cap 2 Mg PO PRN 05/09/17 Reported Zofran (Ondansetron Hcl) 4 Mg Tab 4 Mg PO Q6 PRN 05/09/17 Reported Folvite (Folic Acid) 1 Mg Tab 1 Tab .ROUTE DAILY 90 05/23/15 Reported Prednisone 5 Mg Tab 5 Mg PO DAILY 05/23/15 Reported Methotrexate 2.5 Mg Tab 3 Tabs PO WK 05/23/15 Reported Allergies to Medications: Patient denies. Social History: Patient is not currently employed; she feels safe in her home environment; she admits to tobacco and alcohol use. Physical Examination: Vital Signs: Date Time Temp Pulse Resp B/P (MAP) Pulse Ox O2 Delivery O2 Flow Rate FiO2 05/09/17 16:08 94 20 126/97 94 Room Air 05/09/17 14:28 102 17 170/86 94 Room Air 05/09/17 13:02 98 16 158/83 98 Room Air 05/09/17 12:05 109 05/09/17 11:45 36.6 106 20 139/83 96 Room Air GENERAL: 61-year-old female in moderate distress due to pain, nontoxic-appearing , afebrile and hemodynamically stable. NEUROLOGICAL: Awake, alert and oriented to person, place and time. Answering questions appropriately and following commands. Normal gait. Good hand eye coordination. SKIN: Warm, dry and pink. No soft tissue eruptions or trauma noted. HEENT: Atraumatic and normocephalic. PERRL. Sclera white and conjunctiva pink. Oral cavity moist and pink. Pharynx is nonerythematous or edematous. Speech normal. No lymphadenopathy. Trachea midline. No jugular venous distention. BACK: No tenderness over the bony spine. No CVA tenderness. THORAX: Lungs sounds are clear to auscultation and equal bilaterally with symmetrical chest wall. No wheezing, rales or rhonchi. No crepitus, tenderness , subcutaneous air or deformities noted. HEART: Regular rate and rhythm. No gallops, rubs or murmurs are appreciated. ABDOMEN: Flat and soft with mild to moderate tenderness throughout the lower abdomen without side specific symptoms. Decreased bowel sounds in all quadrants. No guarding, rigidity or organomegaly. EXTREMITIES: Moves all extremities well on command and with purpose. All distal neurovascular statuses are intact and equal bilaterally. ED Course: Patient is assessed as noted above. Laboratory Testing: Test 05/09/17 12:30 05/09/17 14:35 Range/Units White Blood Count 18.30 4.8-10.8 K/uL Red Blood Count 4.20 4.2-5.4 M/uL Hemoglobin 14.3 12.0-16.0 g/dL Hematocrit 39.6 37-47 % Mean Corpuscular Volume 94.3 80-100 fL Mean Corpuscular Hemoglobin 34.0 25-34 pg Mean Corpuscular Hemoglobin Concent 36.1 32-36 g/dl Platelet Count 264 130-400 K/uL Mean Platelet Volume 10.1 7.4-10.4 fL Neutrophils (%) (Auto) 64.8 % Lymphocytes (%) (Auto) 16.4 % Monocytes (%) (Auto) 16.6 % Eosinophils (%) (Auto) 0.6 % Basophils (%) (Auto) 0.3 % Neutrophils # (Auto) 11.85 1.4-6.5 K/uL Lymphocytes # (Auto) 3.00 1.2-3.4 K/uL Monocytes # (Auto) 3.04 0.11-0.59 K/uL Eosinophils # (Auto) 0.11 0-0.5 K/uL Basophils # (Auto) 0.06 0-0.2 K/uL RDW Standard Deviation 42.1 36.4-46.3 fL RDW Coefficient of Variation 12.3 11.5-14.5 % Immature Granulocyte % (Auto) 1.3 % Immature Granulocyte # (Auto) 0.24 0.00-0.02 K/uL Toxic Granulation 1+ Toxic Vacuolation 1+ Dohle Bodies 1+ Sodium Level 135 136-145 mmol/L Potassium Level 3.1 3.5-5.1 mmol/L Chloride Level 98 98-107 mmol/L Carbon Dioxide Level 28 21-32 mmol/L Anion Gap 9.0 3-11 mmol/L Blood Urea Nitrogen 21 7-18 mg/dl Creatinine 0.74 0.60-1.20 mg/dl Est Creatinine Clear Calc Drug Dose 79.5 ml/min Estimated GFR () 100.6 Estimated GFR (Non- 86.8 BUN/Creatinine Ratio 28.6 10-20 Random Glucose 102 70-99 mg/dl Calcium Level 9.1 8.5-10.1 mg/dl Total Bilirubin 0.5 0.2-1 mg/dl Direct Bilirubin 0.2 0-0.2 mg/dl Aspartate Amino Transf (AST/SGOT) 21 15-37 U/L Alanine Aminotransferase (ALT/SGPT) 24 12-78 U/L Alkaline Phosphatase 121 45-117 U/L Total Protein 7.0 6.4-8.2 gm/dl Albumin 2.8 3.4-5.0 gm/dl Lipase 63 73-393 U/L Urine Color ORANGE Urine Appearance CLOUDY CLEAR Urine pH 6.0 4.5-7.5 Urine Specific [place] 1.034 1.000-1.030 Urine Protein 2+ NEG Urine Glucose (UA) NEG NEG Urine Ketones 4+ NEG Urine Occult Blood NEG NEG Urine Nitrite POS NEG Urine Bilirubin NEG NEG Urine Urobilinogen NEG NEG Urine Leukocyte Esterase TRACE NEG Urine WBC (Auto) 5-10 0-5 /hpf Urine RBC (Auto) 5-10 0-4 /hpf Urine Hyaline Casts (Auto) 5-10 0-5 /lpf Urine Epithelial Cells (Auto) >30 0-5 /lpf Urine Bacteria (Auto) NEG NEG Urine Renal Epithelial Cells 5-10 0-5 /lpf Urine Crystals CALCIUM OXALATE NONE PRSENT Urine Pathogenic Casts 0 /lpf Urine Mucus PRESENT NONE PRSENT Blood Culture: Pending Stool studies: Patient was not able to provide us an sample for testing. Abdominal/Pelvic CT with Contrast: Was reviewed by myself and read by the radiologist and shows pancolitis, normal-appearing appendix, no evidence of bowel obstruction, status post hysterectomy and hepatic steatosis. Patient was hydrated with 2 L normal saline and she received a total of 12 mg of morphine IV for pain and 4 mg of Zofran IV for nausea or Additionally she received 1 g of ceftriaxone IV and 500 mg of Flagyl IV for antibiotic coverage. Patient was reassessed multiple times during her stay in the emergency department. Patient's case was reviewed with Dr. Rivera; we agreed on diagnostic approach, treatment, disposition and plan. Patient's case was consulted with case management and Ms. Suh, [facility], for medical observation/admission. Patient was educated about today's findings. Clinical Impression: Acute pancolitis. Decision-Making: Initially my differential diagnosis I considered diverticulitis , colitis, appendicitis, diarrheal disease and other causes. Disposition and Plan: Patient be brought in the hospital by the [facility]; please see their notes and orders for final disposition and plan.
--- NOTE | 2017-05-10 17:20 | ECHOCARDIOGRAM REPORT ---
*NOTICE TO RECEIVING REPUBLICAN AGENCY This information is strictly Confidential and protected under [place] law. [place] law prohibits you from making any further disclosure of this information unless further disclosure is expressly permitted by the written consent of the person to whom it pertains or is authorized by law. A general authorization for the release of medical or other information is not sufficient for this purpose. Hospital accepts no responsibility if the information is made available to any other person, INCLUDING THE PATIENT. Interpretation Summary * Name: PAREDEP WOODS Study Date: 05/10/2017 01:06 PM BP: 147/76 mmHg * Patient Location: [facility] [place] HR: 97 * : 1955 (M/d/yyyy) Gender: Female Height: 62 in * Age: 61 yrs Ethnicity: [place] Weight: 186 lb * Ordering Physician: Kristen Suh * Referring Physician: Self, Referred * Performed By: Blossom Felton RDCS * * Reason For Study: Chest pain * BSA: 1.9 m2 * The study was technically adequate. * There is no comparison study available. * -- Conclusions -- * Ejection Fraction = 65-70%. * Pulse wave TDI of the anterior and posterior mitral annulas demonstrates normal LV relaxation. * No significant valvular pathology. Procedure Details * A complete two-dimensional transthoracic echocardiogram was performed (2D, M-mode, Doppler and color flow Doppler). Left Ventricle * The left ventricle is normal in size. * There is normal left ventricular wall thickness. * Ejection Fraction = 65-70%. * Left ventricular systolic function is normal. * The left ventricular wall motion is normal. Right Ventricle * The right ventricle is normal size. * The right ventricular systolic function is normal as assessed by tricuspid annular plane systolic excursion (TAPSE) (normal >1.5 cm). Atria * The left atrial size is normal. * Right atrial size is normal. * There is no evidence of atrial septal defect, but resolution does not allow assessment for a patent foramen ovale. Mitral Valve * The mitral valve is normal. * There is no mitral valve stenosis. * Significant mitral regurgitation is absent. Tricuspid Valve * The tricuspid valve is normal. * There is no tricuspid stenosis. * Significant tricuspid regurgitation is absent. Aortic Valve * The aortic valve is trileaflet. * Aortic stenosis is absent. * There is no significant aortic regurgitation. Pulmonic Valve * The pulmonary valve is not well seen, but the Doppler examination is normal without significant regurgitation or stenosis. Great Vessels * The aortic root is normal size. Pericardium/Pleural * There is no pericardial effusion. Great Vessels * Normal inferior vena cava diameter and respiratory variation suggests normal central venous pressure. Left Ventricular Diastolic Function * Pulse wave TDI of the anterior and posterior mitral annulas demonstrates normal LV relaxation MMode 2D Measurements and Calculations IVSd 0.83 cm LVIDd 3.5 cm LVIDs 2.4 cm LVPWd 0.90 cm IVS/LVPW 0.92 FS 32.1 % EDV(Teich) 49.8 ml ESV(Teich) 19.2 ml EF(Teich) 61.4 % EDV(cubed) 41.8 ml ESV(cubed) 13.1 ml EF(cubed) 68.7 % LV mass(C)d 83.1 grams LV mass(C)dI 44.8 grams/m\S\2 SV(Teich) 30.6 ml SI(Teich) 16.5 ml/m\S\2 SV(cubed) 28.7 ml SI(cubed) 15.5 ml/m\S\2 Ao root diam 3.3 cm Ao root area 8.8 cm\S\2 ACS 1.9 cm LA dimension 3.1 cm asc Aorta Diam 2.8 cm LA/Ao 0.94 LVOT diam 1.9 cm LVOT area 3.0 cm\S\2 LVAd ap4 23.4 cm\S\2 LVLd ap4 7.1 cm EDV(MOD-sp4) 61.9 ml EDV(sp4-el) 65.1 ml LVAs ap4 12.0 cm\S\2 LVLs ap4 6.0 cm ESV(MOD-sp4) 22.1 ml ESV(sp4-el) 20.5 ml EF(MOD-sp4) 64.3 % EF(sp4-el) 68.6 % LVAd ap2 24.9 cm\S\2 LVLd ap2 7.7 cm EDV(MOD-sp2) 65.9 ml EDV(sp2-el) 68.3 ml LVAs ap2 12.7 cm\S\2 LVLs ap2 6.1 cm ESV(MOD-sp2) 22.9 ml ESV(sp2-el) 22.6 ml EF(MOD-sp2) 65.2 % EF(sp2-el) 66.9 % LVLd %diff 7.1 % EDV(MOD-bp) 66.1 ml LVLs %diff 1.6 % ESV(MOD-bp) 22.6 ml EF(MOD-bp) 65.9 % SV(MOD-sp4) 39.8 ml SI(MOD-sp4) 21.5 ml/m\S\2 SV(MOD-sp2) 43.0 ml SI(MOD-sp2) 23.2 ml/m\S\2 SV(MOD-bp) 43.6 ml SI(MOD-bp) 23.5 ml/m\S\2 SV(sp4-el) 44.7 ml SI(sp4-el) 24.1 ml/m\S\2 SV(sp2-el) 45.7 ml SI(sp2-el) 24.7 ml/m\S\2 Doppler Measurements and Calculations MV E max kailash 111.1 cm/sec MV A max kailash 121.7 cm/sec MV E/A 0.91 MV dec time 0.23 sec Ao V2 max 129.1 cm/sec Ao max PG 6.7 mmHg Ao max PG (full) 2.5 mmHg TAYLOR(V,A) 2.4 cm\S\2 TAYLOR(V,D) 2.4 cm\S\2 LV V1 max PG 4.2 mmHg LV V1 max 102.3 cm/sec PA V2 max 112.7 cm/sec PA max PG 5.1 mmHg PA acc slope 438.6 cm/sec\S\2 PA acc time 0.13 sec TR max kailash 212.4 cm/sec PA pr(Accel) 18.8 mmHg
[2017-05-10] MEDS: ENOXAPARIN 40 MG/0.4 ML SYR SC SCH (20:22)
[2017-05-11] VITALS (10 sets, daily range): BP systolic 125–166; BP diastolic 69–84; PULSE 87–97; TEMP 36.4–37; O2SAT 94–98
[2017-05-11] MEDS: SODIUM CHLORIDE 0.9% 1000ML 1,000 ML IV SCH ×3 (03:08→16:34)
[2017-05-11] MEDS: LOPERAMIDE HCL 2 MG CAP PO PRN ×4 (03:09→16:37)
[2017-05-11] MEDS: CIPROFLOXACIN / D5W 400 MG in PREMIXED IN D5W 200 ML IV SCH ×2 (07:51→20:05)
[2017-05-11] MEDS: METRONIDAZOLE / NSS 500 MG in PREMIXED NSS 100 ML IV SCH ×2 (07:51→15:33)
[2017-05-11] MEDS: LISINOPRIL 10 MG TAB PO SCH (07:53)
[2017-05-11] MEDS: MULTIVITAMIN TAB PO SCH (07:53)
[2017-05-11 08:11] LABS: HEMATOCRIT 33.3 % (37-47); MEAN CELL VOLUME 95.4 fL (80-100); MEAN CORPUSCULAR HEMOGLOBIN 32.4 pg (25-34); MEAN CORPUSCULAR HGB CONC 33.9 g/dl (32-36); MEAN PLATELET VOLUME 9.9 fL (7.4-10.4); PLATELET COUNT 286 K/uL (130-400); RED BLOOD COUNT 3.49 M/uL (4.2-5.4); WHITE BLOOD COUNT 13.05 K/uL (4.8-10.8)
[2017-05-11 08:47] LABS: BUN/CREATININE RATIO 14.2 (10-20); CALCIUM 7.6 mg/dl (8.5-10.1); CREATININE 0.38 mg/dl (0.60-1.20); POTASSIUM 3.2 mmol/L (3.5-5.1)
[2017-05-11] MEDS ORDERED: POTASSIUM CHLORIDE 10 MEQ TABCR PO STA (08:55)
[2017-05-11] MEDS ORDERED: POTASSIUM CHLR 10 MEQ / WTR 10 MEQ in PREMIXED WATER 100 ML IV STA (08:55)
--- NOTE | 2017-05-11 08:59 | Progress Note ---
Subjective Date of Service: May 11, 2017. Subjective Pt evaluation today including: conversation w/ patient, physical exam, lab review, review of studies, review of inpatient medication list Saw/examined the patient in room 283 Still having lots of diarrhea with abdominal cramping lack of appetite +weakness Review of Systems Constitutional: + weakness, + problem reported (lack of appetite), No fever, No chills Respiratory: No shortness of breath Cardiac: No chest pain Abdomen: + pain, + diarrhea, No nausea, No vomiting, No constipation, No GI bleeding Medications Current Inpatient Medications Medications (Trade) Dose Ordered Sig/Maryam Route Start Time Stop Time Status Last Admin Dose Admin Ioversol (Optiray 320) 125 ml UD PRN IV 05/09/17 13:00 05/13/17 12:59 Enoxaparin Sodium (Lovenox Inj) 40 mg Q24H SC 05/09/17 20:00 06/08/17 19:59 05/10/17 20:22 40 MG Sodium Chloride 1,000 ml @ 125 mls/hr Q8H IV 05/09/17 16:29 06/08/17 16:28 05/11/17 07:51 125 MLS/HR Acetaminophen (Tylenol Tab) 650 mg Q4H PRN PO 05/09/17 16:30 06/08/17 16:29 05/10/17 07:59 650 MG Ondansetron HCl (Zofran Inj) 4 mg Q6H PRN IV 05/09/17 16:30 06/08/17 16:29 Ciprofloxacin/ Dextrose 400 mg/ Prmx 200 ml @ 100 mls/hr Q12@0800,2000 IV 05/09/17 20:00 05/19/17 19:59 05/11/17 07:51 100 MLS/HR Metronidazole 500 mg/Prmx 100 ml @ 100 mls/hr Q8H IV 05/10/17 00:00 05/20/17 00:00 05/11/17 07:51 100 MLS/HR Folic Acid (Folvite Tab) 1 mg DAILY PO 05/10/17 09:00 06/09/17 08:59 05/11/17 07:52 1 MG Multivitamins (Multivitamin Tab) 1 tab DAILY PO 05/10/17 09:00 06/09/17 08:59 05/11/17 07:53 1 TAB Prednisone (PredniSONE TAB) 5 mg DAILY PO 05/10/17 09:00 06/09/17 08:59 05/11/17 07:52 5 MG Lisinopril (Zestril Tab) 10 mg QAM PO 05/10/17 09:00 06/09/17 08:59 05/11/17 07:53 10 MG Morphine Sulfate (MoRPHine SULFATE INJ) 3 mg Q4H PRN IV 05/09/17 17:45 05/23/17 17:44 Loperamide HCl (Imodium Cap) 2 mg UD PRN PO 05/10/17 01:00 06/09/17 00:59 05/11/17 03:09 2 MG Objective Vital Signs Date Time Temp Pulse Resp B/P (MAP) Pulse Ox O2 Delivery O2 Flow Rate FiO2 05/11/17 08:02 36.6 93 18 157/70 (99) 95 Room Air 05/11/17 04:30 37.0 97 18 125/76 (92) 96 Room Air 05/11/17 04:00 Room Air 05/11/17 00:53 36.7 87 20 154/82 (106) 98 Room Air 05/11/17 00:00 Room Air 05/10/17 20:00 94 Room Air 05/10/17 19:41 37.2 86 18 150/81 (104) 96 Room Air 05/10/17 16:00 94 Room Air 05/10/17 15:34 36.9 89 18 143/73 (96) 94 Room Air 05/10/17 12:00 96 Room Air 05/10/17 11:50 36.5 89 18 146/81 (102) 96 Room Air Physical Exam General Appearance: no apparent distress, + obese ENT: hearing grossly normal Respiratory/Chest: no respiratory distress, no accessory muscle use Abdomen: non tender, soft, + abnormal bowel sounds (hyperactive) Laboratory Results Last 24 Hours Test 05/11/17 07:40 White Blood Count 13.05 K/uL Red Blood Count 3.49 M/uL Hemoglobin 11.3 g/dL Hematocrit 33.3 % Mean Corpuscular Volume 95.4 fL Mean Corpuscular Hemoglobin 32.4 pg Mean Corpuscular Hemoglobin Concent 33.9 g/dl RDW Standard Deviation 44.3 fL RDW Coefficient of Variation 12.8 % Platelet Count 286 K/uL Mean Platelet Volume 9.9 fL Sodium Level 142 mmol/L Potassium Level 3.2 mmol/L Chloride Level 109 mmol/L Carbon Dioxide Level 25 mmol/L Anion Gap 8.0 mmol/L Blood Urea Nitrogen 5 mg/dl Creatinine 0.38 mg/dl Est Creatinine Clear Calc Drug Dose 159.3 ml/min Estimated GFR () 131.6 Estimated GFR (Non- 113.5 BUN/Creatinine Ratio 14.2 Random Glucose 86 mg/dl Calcium Level 7.6 mg/dl Assessment and Plan Sepsis secondary to Infectious Colitis 05/11 infectious colitis; likely viral gastroenteritis will continue abx for now WBC trending down replace K give full liquid diet Lomotil as needed IVFs 05/10 C. diff negative stool studies pending leukocytosis - improving afebrile tachycardia improving continue IVFs, supportive care IV abx. Cipro + Flagyl GI consultation pending Hypokalemia due to diarrhea, replace and recheck Chest Pain, unlikely ACS cardiac enzymes negative, echo with no significant findings HTN BP controlled will continue Lisinopril, holding HCTZ due to clinical dehydration Hx. of RA holding methotrexate due to infection continue Prednisone; no role for stress dose steroids at this time Depressed Mood patient tearful during exam about high stress due to taking care of her mother no suicidal thoughts offered mental health consult, patient declined DVT ppx Lovenox FULL CODE
--- NOTE | 2017-05-11 11:07 | Gastroenterology Progress Note ---
Progress Note Date of Service: May 11, 2017 Subjective Pt evaluation today including: conversation w/ patient, conversation w/ family Feels ok, slight improvement Medications Current Inpatient Medications Medications (Trade) Dose Ordered Sig/Maryam Route Start Time Stop Time Status Last Admin Dose Admin Ioversol (Optiray 320) 125 ml UD PRN IV 05/09/17 13:00 05/13/17 12:59 Enoxaparin Sodium (Lovenox Inj) 40 mg Q24H SC 05/09/17 20:00 06/08/17 19:59 05/10/17 20:22 40 MG Sodium Chloride 1,000 ml @ 125 mls/hr Q8H IV 05/09/17 16:29 06/08/17 16:28 05/11/17 07:51 125 MLS/HR Acetaminophen (Tylenol Tab) 650 mg Q4H PRN PO 05/09/17 16:30 06/08/17 16:29 05/10/17 07:59 650 MG Ondansetron HCl (Zofran Inj) 4 mg Q6H PRN IV 05/09/17 16:30 06/08/17 16:29 Ciprofloxacin/ Dextrose 400 mg/ Prmx 200 ml @ 100 mls/hr Q12@0800,2000 IV 05/09/17 20:00 05/19/17 19:59 05/11/17 07:51 100 MLS/HR Metronidazole 500 mg/Prmx 100 ml @ 100 mls/hr Q8H IV 05/10/17 00:00 05/20/17 00:00 05/11/17 07:51 100 MLS/HR Folic Acid (Folvite Tab) 1 mg DAILY PO 05/10/17 09:00 06/09/17 08:59 05/11/17 07:52 1 MG Multivitamins (Multivitamin Tab) 1 tab DAILY PO 05/10/17 09:00 06/09/17 08:59 05/11/17 07:53 1 TAB Prednisone (PredniSONE TAB) 5 mg DAILY PO 05/10/17 09:00 06/09/17 08:59 05/11/17 07:52 5 MG Lisinopril (Zestril Tab) 10 mg QAM PO 05/10/17 09:00 06/09/17 08:59 05/11/17 07:53 10 MG Morphine Sulfate (MoRPHine SULFATE INJ) 3 mg Q4H PRN IV 05/09/17 17:45 05/23/17 17:44 Loperamide HCl (Imodium Cap) 2 mg UD PRN PO 05/10/17 01:00 06/09/17 00:59 05/11/17 10:09 2 MG Objective Vital Signs Date Time Temp Pulse Resp B/P (MAP) Pulse Ox O2 Delivery O2 Flow Rate FiO2 05/11/17 08:02 36.6 93 18 157/70 (99) 95 Room Air 05/11/17 08:00 95 Room Air 05/11/17 04:30 37.0 97 18 125/76 (92) 96 Room Air 05/11/17 04:00 Room Air 05/11/17 00:53 36.7 87 20 154/82 (106) 98 Room Air 05/11/17 00:00 Room Air 05/10/17 20:00 94 Room Air 05/10/17 19:41 37.2 86 18 150/81 (104) 96 Room Air 05/10/17 16:00 94 Room Air 05/10/17 15:34 36.9 89 18 143/73 (96) 94 Room Air 05/10/17 12:00 96 Room Air 05/10/17 11:50 36.5 89 18 146/81 (102) 96 Room Air Physical Exam General Appearance: WD/WN Neck: supple Respiratory/Chest: chest non-tender Cardiovascular: regular rate, rhythm Abdomen: normal bowel sounds, non tender Extremities: normal range of motion 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 Skin: normal color Laboratory Results Last 24 Hours Test 05/11/17 07:40 White Blood Count 13.05 K/uL Red Blood Count 3.49 M/uL Hemoglobin 11.3 g/dL Hematocrit 33.3 % Mean Corpuscular Volume 95.4 fL Mean Corpuscular Hemoglobin 32.4 pg Mean Corpuscular Hemoglobin Concent 33.9 g/dl RDW Standard Deviation 44.3 fL RDW Coefficient of Variation 12.8 % Platelet Count 286 K/uL Mean Platelet Volume 9.9 fL Sodium Level 142 mmol/L Potassium Level 3.2 mmol/L Chloride Level 109 mmol/L Carbon Dioxide Level 25 mmol/L Anion Gap 8.0 mmol/L Blood Urea Nitrogen 5 mg/dl Creatinine 0.38 mg/dl Est Creatinine Clear Calc Drug Dose 159.3 ml/min Estimated GFR () 131.6 Estimated GFR (Non- 113.5 BUN/Creatinine Ratio 14.2 Random Glucose 86 mg/dl Calcium Level 7.6 mg/dl Assessment and Plan Impression Patient is a 61 year old female with acute diarrheal illness Plan Symptoms are likely infectious in nature given timeframe, WBC count, and lack of alarm symptoms. -Continue abx with cirpro and flagyl -Bentyl prn, add some fiber such as metamucil or benefiber -Follow stool cx, however, etiology is likely viral -Continue symptomatic care -F/U with PCP at d/c and suggest colonoscopy after symptoms have resolved or within 1 mo.
[2017-05-11] MEDS: DICYCLOMINE HCL 10 MG CAP PO SCH ×2 (12:00→17:40)
[2017-05-11] MEDS: ENOXAPARIN 40 MG/0.4 ML SYR SC SCH (20:07)
[2017-05-12] VITALS: O2SAT 95
[2017-05-12] MEDS: SODIUM CHLORIDE 0.9% 1000ML 1,000 ML IV SCH ×4 (00:01→23:13)
[2017-05-12] MEDS: LOPERAMIDE HCL 2 MG CAP PO PRN ×6 (03:52→19:35)
[2017-05-12 04:00] VITALS: BP 160/77; TEMP 36.8; O2SAT 95
[2017-05-12] MEDS: DICYCLOMINE HCL 10 MG CAP PO SCH ×5 (06:00→23:13)
[2017-05-12 06:32] LABS: HEMATOCRIT 33.4 % (37-47); MEAN CORPUSCULAR HGB CONC 34.4 g/dl (32-36); MEAN PLATELET VOLUME 9.8 fL (7.4-10.4); PLATELET COUNT 331 K/uL (130-400); RED BLOOD COUNT 3.48 M/uL (4.2-5.4)
[2017-05-12 06:58] LABS: BUN/CREATININE RATIO 7.6 (10-20); CALCIUM 7.8 mg/dl (8.5-10.1); CREATININE 0.42 mg/dl (0.60-1.20)
[2017-05-12 07:16] VITALS: BP 159/87; PULSE 85; TEMP 36.9; O2SAT 97
[2017-05-12] MEDS: METRONIDAZOLE / NSS 500 MG in PREMIXED NSS 100 ML IV SCH ×2 (07:46)
[2017-05-12] MEDS: CIPROFLOXACIN / D5W 400 MG in PREMIXED IN D5W 200 ML IV SCH (07:46)
[2017-05-12] MEDS: LISINOPRIL 10 MG TAB PO SCH (07:47)
[2017-05-12] MEDS: MULTIVITAMIN TAB PO SCH (07:47)
[2017-05-12] MEDS: POTASSIUM CHLR 10 MEQ / WTR 10 MEQ in PREMIXED WATER 100 ML IV SCH ×4 (09:45→12:52)
[2017-05-12] MEDS: POTASSIUM CHLORIDE 10 MEQ TABCR PO SCH (09:46)
--- NOTE | 2017-05-12 10:37 | Clinical Documentation Query ---
CLINICAL DOCUMENTATION QUERY Dr. BURNHAM, In your clinical opinion is this patient being managed for: ( X ) Campylobacter enteritis ( ) Other explanation of clinical findings (Please Explain) ( ) Unable to determine (Please Define) ( ) Need to Discuss ( ) Not Agree The medical record reflects the following clinical findings, treatment, and risk factors. Clinical Indicators: 61 yo female presenting with sepsis and infectious gastroenteritis. Stool culture showed campylobacter jejuni. Treatment: IV cipro, azithromycin, IV fluids, GI consult, hold methotrexate Risk Factors: immunocompromised due to methotrexate and prednisone therapy Please clarify and document your clinical opinion in the progress notes and discharge summary. Terms such as "probable", "suspected", "likely", "questionable", "possible", or "still to be ruled out" are acceptable. IF IN AGREEMENT, YOU MUST DOCUMENT ABOVE DIAGNOSTIC STATEMENT IN DAILY PROGRESS NOTES AND DISCHARGE SUMMARY. This document is not part of the patient's record. Thank You, Marleny Mccormick RN [phone]
--- NOTE | 2017-05-12 10:42 | Progress Note ---
Subjective Date of Service: May 12, 2017. Subjective Pt evaluation today including: conversation w/ patient, physical exam, lab review, review of studies, review of inpatient medication list Saw/examined the patient in room 283 +diarrhea persists, lack of appetite persists no abdominal pain no fevers/chills Review of Systems Constitutional: No fever, No chills Respiratory: No shortness of breath Cardiac: No chest pain Abdomen: + diarrhea, No pain, No nausea, No vomiting Medications Current Inpatient Medications Medications (Trade) Dose Ordered Sig/Maryam Route Start Time Stop Time Status Last Admin Dose Admin Ioversol (Optiray 320) 125 ml UD PRN IV 05/09/17 13:00 05/13/17 12:59 Enoxaparin Sodium (Lovenox Inj) 40 mg Q24H SC 05/09/17 20:00 06/08/17 19:59 05/11/17 20:07 40 MG Sodium Chloride 1,000 ml @ 125 mls/hr Q8H IV 05/09/17 16:29 06/08/17 16:28 05/12/17 09:10 125 MLS/HR Acetaminophen (Tylenol Tab) 650 mg Q4H PRN PO 05/09/17 16:30 06/08/17 16:29 05/10/17 07:59 650 MG Ondansetron HCl (Zofran Inj) 4 mg Q6H PRN IV 05/09/17 16:30 06/08/17 16:29 05/11/17 20:02 4 MG Folic Acid (Folvite Tab) 1 mg DAILY PO 05/10/17 09:00 06/09/17 08:59 05/12/17 09:10 1 MG Multivitamins (Multivitamin Tab) 1 tab DAILY PO 05/10/17 09:00 06/09/17 08:59 05/12/17 07:47 1 TAB Prednisone (PredniSONE TAB) 5 mg DAILY PO 05/10/17 09:00 06/09/17 08:59 05/12/17 07:47 5 MG Lisinopril (Zestril Tab) 10 mg QAM PO 05/10/17 09:00 06/09/17 08:59 05/12/17 07:47 10 MG Morphine Sulfate (MoRPHine SULFATE INJ) 3 mg Q4H PRN IV 05/09/17 17:45 05/23/17 17:44 Loperamide HCl (Imodium Cap) 2 mg UD PRN PO 05/10/17 01:00 06/09/17 00:59 05/12/17 07:46 2 MG Dicyclomine HCl (Bentyl Cap) 10 mg Q6HWA PO 05/11/17 12:00 06/10/17 11:59 05/12/17 00:00 10 MG Potassium Chloride 10 meq/ Prmx 100 ml @ 100 mls/hr Q1H IV 05/12/17 09:45 05/12/17 13:44 05/12/17 09:45 100 MLS/HR Potassium Chloride (Klor-Con M10) 20 meq 0945 PO 05/12/17 09:45 06/11/17 09:44 05/12/17 09:46 20 MEQ Azithromycin (Zithromax Tab) 500 mg QAM PO 05/13/17 09:00 05/16/17 08:59 UNV Objective Vital Signs Date Time Temp Pulse Resp B/P (MAP) Pulse Ox O2 Delivery O2 Flow Rate FiO2 05/12/17 08:00 Room Air 05/12/17 07:16 36.9 85 18 159/87 (111) 97 Room Air 05/12/17 04:00 36.8 20 160/77 (104) 95 Room Air 05/12/17 04:00 95 Room Air 05/12/17 00:00 95 Room Air 05/11/17 23:13 37.0 92 20 151/77 (101) 95 Room Air 05/11/17 20:00 95 Room Air 05/11/17 19:59 36.9 87 20 158/84 (108) 96 Room Air 05/11/17 16:03 36.4 88 20 166/83 (110) 94 Room Air 05/11/17 16:00 95 Room Air 05/11/17 12:20 36.9 87 16 125/69 (87) 95 Room Air Physical Exam General Appearance: no apparent distress Respiratory/Chest: lungs clear, normal breath sounds, no respiratory distress, no accessory muscle use Cardiovascular: regular rate, rhythm, no edema, no murmur Abdomen: non tender, soft, + abnormal bowel sounds (hyperactive bowel sounds) Laboratory Results Last 24 Hours Test 05/12/17 05:43 05/12/17 09:58 White Blood Count 12.40 K/uL Red Blood Count 3.48 M/uL Hemoglobin 11.5 g/dL Hematocrit 33.4 % Mean Corpuscular Volume 96.0 fL Mean Corpuscular Hemoglobin 33.0 pg Mean Corpuscular Hemoglobin Concent 34.4 g/dl RDW Standard Deviation 45.4 fL RDW Coefficient of Variation 13.0 % Platelet Count 331 K/uL Mean Platelet Volume 9.8 fL Sodium Level 143 mmol/L Potassium Level 3.0 mmol/L Chloride Level 109 mmol/L Carbon Dioxide Level 26 mmol/L Anion Gap 8.0 mmol/L Blood Urea Nitrogen 3 mg/dl Creatinine 0.42 mg/dl Est Creatinine Clear Calc Drug Dose 144.2 ml/min Estimated GFR () 127.3 Estimated GFR (Non- 109.9 BUN/Creatinine Ratio 7.6 Random Glucose 85 mg/dl Calcium Level 7.8 mg/dl Assessment and Plan Sepsis secondary to Campylobacter Enteritis 05/12 +campylobacter culture appreciate GI input Cipro + Flagyl changed to Azithromycin continue IVFs Bentyl and Lomotil replace K 05/11 infectious colitis; likely viral gastroenteritis will continue abx for now WBC trending down replace K give full liquid diet Lomotil as needed IVFs 05/10 C. diff negative stool studies pending leukocytosis - improving afebrile tachycardia improving continue IVFs, supportive care IV abx. Cipro + Flagyl GI consultation pending Hypokalemia due to diarrhea, replace and recheck Chest Pain, unlikely ACS cardiac enzymes negative, echo with no significant findings HTN BP controlled will continue Lisinopril, holding HCTZ due to clinical dehydration Hx. of RA holding methotrexate due to infection continue Prednisone; no role for stress dose steroids at this time Depressed Mood patient tearful during exam about high stress due to taking care of her mother no suicidal thoughts offered mental health consult, patient declined DVT ppx Lovenox FULL CODE
[2017-05-12 11:13] VITALS: BP 158/82; PULSE 83; TEMP 36.9; O2SAT 95
[2017-05-12] MEDS: AZITHROMYCIN 250 MG TAB PO SCH (11:55)
--- NOTE | 2017-05-12 12:55 | Gastroenterology Progress Note ---
Progress Note Date of Service: May 12, 2017 Subjective Pt evaluation today including: conversation w/ patient, physical exam, chart review, lab review, review of inpatient medication list Pt felt diarrhea is slowing down. Denies blood in stools. Appetite fair. Denies any n/v. Leukocytosis improved, H/H stable for last couple of days. Review of Systems Constitutional: No fever, No chills Respiratory: No cough, No shortness of breath Cardiac: No chest pain Abdomen: + diarrhea, No pain, No nausea, No vomiting Medications Current Inpatient Medications Medications (Trade) Dose Ordered Sig/Maryam Route Start Time Stop Time Status Last Admin Dose Admin Ioversol (Optiray 320) 125 ml UD PRN IV 05/09/17 13:00 05/13/17 12:59 Enoxaparin Sodium (Lovenox Inj) 40 mg Q24H SC 05/09/17 20:00 06/08/17 19:59 05/11/17 20:07 40 MG Sodium Chloride 1,000 ml @ 125 mls/hr Q8H IV 05/09/17 16:29 06/08/17 16:28 05/12/17 09:10 125 MLS/HR Acetaminophen (Tylenol Tab) 650 mg Q4H PRN PO 05/09/17 16:30 06/08/17 16:29 05/10/17 07:59 650 MG Ondansetron HCl (Zofran Inj) 4 mg Q6H PRN IV 05/09/17 16:30 06/08/17 16:29 05/11/17 20:02 4 MG Folic Acid (Folvite Tab) 1 mg DAILY PO 05/10/17 09:00 06/09/17 08:59 05/12/17 09:10 1 MG Multivitamins (Multivitamin Tab) 1 tab DAILY PO 05/10/17 09:00 06/09/17 08:59 05/12/17 07:47 1 TAB Prednisone (PredniSONE TAB) 5 mg DAILY PO 05/10/17 09:00 06/09/17 08:59 05/12/17 07:47 5 MG Lisinopril (Zestril Tab) 10 mg QAM PO 05/10/17 09:00 06/09/17 08:59 05/12/17 07:47 10 MG Morphine Sulfate (MoRPHine SULFATE INJ) 3 mg Q4H PRN IV 05/09/17 17:45 05/23/17 17:44 Loperamide HCl (Imodium Cap) 2 mg UD PRN PO 05/10/17 01:00 06/09/17 00:59 05/12/17 07:46 2 MG Dicyclomine HCl (Bentyl Cap) 10 mg Q6HWA PO 05/11/17 12:00 06/10/17 11:59 05/12/17 11:49 10 MG Potassium Chloride 10 meq/ Prmx 100 ml @ 100 mls/hr Q1H IV 05/12/17 09:45 05/12/17 13:44 05/12/17 11:49 100 MLS/HR Potassium Chloride (Klor-Con M10) 20 meq 0945 PO 05/12/17 09:45 06/11/17 09:44 05/12/17 09:46 20 MEQ Azithromycin (Zithromax Tab) 500 mg QAM PO 05/12/17 12:00 05/22/17 11:59 05/12/17 11:55 500 MG Objective Vital Signs Date Time Temp Pulse Resp B/P (MAP) Pulse Ox O2 Delivery O2 Flow Rate FiO2 05/12/17 12:00 Room Air 05/12/17 11:13 36.9 83 18 158/82 (107) 95 Room Air 05/12/17 08:00 Room Air 05/12/17 07:16 36.9 85 18 159/87 (111) 97 Room Air 05/12/17 04:00 36.8 20 160/77 (104) 95 Room Air 05/12/17 04:00 95 Room Air 05/12/17 00:00 95 Room Air 05/11/17 23:13 37.0 92 20 151/77 (101) 95 Room Air 05/11/17 20:00 95 Room Air 05/11/17 19:59 36.9 87 20 158/84 (108) 96 Room Air 05/11/17 16:03 36.4 88 20 166/83 (110) 94 Room Air 05/11/17 16:00 95 Room Air Physical Exam General Appearance: WD/WN, no apparent distress Eyes: normal inspection, PERRL, EOMI Neck: supple, no JVD, trachea midline Respiratory/Chest: normal breath sounds, no respiratory distress, no accessory muscle use Cardiovascular: regular rate, rhythm, no gallop, no murmur Abdomen: normal bowel sounds, non tender, soft Extremities: normal inspection, no pedal edema, no calf tenderness Neurologic/Psych: alert, normal mood/affect, oriented x 3 Skin: normal color, no jaundice, no rash Laboratory Results Last 24 Hours Test 05/12/17 05:43 05/12/17 09:58 White Blood Count 12.40 K/uL Red Blood Count 3.48 M/uL Hemoglobin 11.5 g/dL Hematocrit 33.4 % Mean Corpuscular Volume 96.0 fL Mean Corpuscular Hemoglobin 33.0 pg Mean Corpuscular Hemoglobin Concent 34.4 g/dl RDW Standard Deviation 45.4 fL RDW Coefficient of Variation 13.0 % Platelet Count 331 K/uL Mean Platelet Volume 9.8 fL Sodium Level 143 mmol/L Potassium Level 3.0 mmol/L Chloride Level 109 mmol/L Carbon Dioxide Level 26 mmol/L Anion Gap 8.0 mmol/L Blood Urea Nitrogen 3 mg/dl Creatinine 0.42 mg/dl Est Creatinine Clear Calc Drug Dose 144.2 ml/min Estimated GFR () 127.3 Estimated GFR (Non- 109.9 BUN/Creatinine Ratio 7.6 Random Glucose 85 mg/dl Calcium Level 7.8 mg/dl Hepatitis C Antibody Screen NEG Assessment and Plan Pt is a 61 y/o female w acute diarrhea and leukocytosis. Stool cx + for campylobacter jejuni, Cdiff negative. CT showed pancolitis. - Changed Cipro, Flagyl to Azithromycin 500mg PO x 3 days. - Continue supportive care, Bentyl, Imodium on PRN basis for symptomatic management. - Advance diet as tolerated. - Consider repeat colonoscopy but can discuss w PCP upon DC if symptoms continue. Last done in [place] 5-6 yrs ago, per pt's report all normal. - Will watch peripherally. ATTESTATION: I have performed a history and physical examination of this patient and reviewed the electronic record. Specifically, on history patient is feeling much better, and on physical examination abdomen is not tender. I have discussed the case with MEIR Chirinos. The above note reflects my findings , conclusions, and recommendations. Jamal Taylor MD
[2017-05-12 15:05] VITALS: BP 149/81; PULSE 79; TEMP 36.8; O2SAT 96
[2017-05-12] MEDS: ENOXAPARIN 40 MG/0.4 ML SYR SC SCH (19:34)
[2017-05-12] MEDS: ACETAMINOPHEN 325 MG TAB PO PRN (19:52)
[2017-05-12 20:00] VITALS: BP 179/91; PULSE 68; TEMP 37; O2SAT 100; O2SAT 96
[2017-05-13] VITALS (8 sets, daily range): BP systolic 142–180; BP diastolic 72–91; PULSE 68–101; TEMP 36.5–37; O2SAT 93–100
[2017-05-13] MEDS: LOPERAMIDE HCL 2 MG CAP PO PRN ×5 (03:31→19:47)
[2017-05-13] MEDS: DICYCLOMINE HCL 10 MG CAP PO SCH ×3 (06:10→18:04)
[2017-05-13 06:13] LABS: MEAN CELL VOLUME 94.7 fL (80-100); MEAN CORPUSCULAR HEMOGLOBIN 33.1 pg (25-34); MEAN PLATELET VOLUME 9.2 fL (7.4-10.4); PLATELET COUNT 323 K/uL (130-400); RED BLOOD COUNT 3.59 M/uL (4.2-5.4); WHITE BLOOD COUNT 13.56 K/uL (4.8-10.8)
[2017-05-13 06:51] LABS: CREATININE 0.38 mg/dl (0.60-1.20)
[2017-05-13 06:52] LABS: BUN/CREATININE RATIO 5.6 (10-20); MAGNESIUM 1.8 mg/dl (1.8-2.4); POTASSIUM 3.3 mmol/L (3.5-5.1)
[2017-05-13] MEDS: SODIUM CHLORIDE 0.9% 1000ML 1,000 ML IV SCH ×2 (07:42→16:03)
[2017-05-13] MEDS: POTASSIUM CHLR 10 MEQ / WTR 10 MEQ in PREMIXED WATER 100 ML IV SCH ×2 (08:10→09:21)
[2017-05-13] MEDS: POTASSIUM CHLORIDE 20 MEQ TABCR PO SCH (08:11)
[2017-05-13] MEDS: AZITHROMYCIN 250 MG TAB PO SCH (08:12)
[2017-05-13] MEDS: LISINOPRIL 10 MG TAB PO SCH (08:13)
[2017-05-13] MEDS: MULTIVITAMIN TAB PO SCH (08:13)
[2017-05-13] MEDS: POTASSIUM CHLORIDE 10 MEQ TABCR PO SCH (08:15)
--- NOTE | 2017-05-13 14:40 | Progress Note ---
Subjective Date of Service: May 13, 2017. Subjective Pt evaluation today including: conversation w/ patient, physical exam, lab review, review of studies, review of inpatient medication list Saw/examined the patient in room 283 Diarrhea persists no abdominal pain fevers/chills resolved Review of Systems Constitutional: No fever, No chills Respiratory: No shortness of breath Cardiac: No chest pain Abdomen: + diarrhea, No pain, No nausea, No vomiting, No constipation, No GI bleeding Medications Current Inpatient Medications Medications (Trade) Dose Ordered Sig/Maryam Route Start Time Stop Time Status Last Admin Dose Admin Enoxaparin Sodium (Lovenox Inj) 40 mg Q24H SC 05/09/17 20:00 06/08/17 19:59 05/12/17 19:34 40 MG Sodium Chloride 1,000 ml @ 125 mls/hr Q8H IV 05/09/17 16:29 06/08/17 16:28 05/13/17 07:42 125 MLS/HR Acetaminophen (Tylenol Tab) 650 mg Q4H PRN PO 05/09/17 16:30 06/08/17 16:29 05/12/17 19:52 650 MG Ondansetron HCl (Zofran Inj) 4 mg Q6H PRN IV 05/09/17 16:30 06/08/17 16:29 05/11/17 20:02 4 MG Folic Acid (Folvite Tab) 1 mg DAILY PO 05/10/17 09:00 06/09/17 08:59 05/13/17 08:13 1 MG Multivitamins (Multivitamin Tab) 1 tab DAILY PO 05/10/17 09:00 06/09/17 08:59 05/13/17 08:13 1 TAB Prednisone (PredniSONE TAB) 5 mg DAILY PO 05/10/17 09:00 06/09/17 08:59 05/13/17 08:13 5 MG Lisinopril (Zestril Tab) 10 mg QAM PO 05/10/17 09:00 06/09/17 08:59 05/13/17 08:13 10 MG Morphine Sulfate (MoRPHine SULFATE INJ) 3 mg Q4H PRN IV 05/09/17 17:45 05/23/17 17:44 Loperamide HCl (Imodium Cap) 2 mg UD PRN PO 05/10/17 01:00 06/09/17 00:59 05/13/17 14:32 2 MG Dicyclomine HCl (Bentyl Cap) 10 mg Q6HWA PO 05/11/17 12:00 06/10/17 11:59 05/13/17 11:58 10 MG Potassium Chloride (Klor-Con M10) 20 meq 0945 PO 05/12/17 09:45 06/11/17 09:44 05/13/17 08:15 20 MEQ Azithromycin (Zithromax Tab) 500 mg QAM PO 05/12/17 12:00 05/22/17 11:59 05/13/17 08:12 500 MG Potassium Chloride (Klor-Con Tab) 20 meq QAM PO 05/13/17 09:00 06/12/17 08:59 05/13/17 08:11 20 MEQ Objective Vital Signs Date Time Temp Pulse Resp B/P (MAP) Pulse Ox O2 Delivery O2 Flow Rate FiO2 05/13/17 12:00 Room Air 05/13/17 08:10 84 147/82 (103) 05/13/17 08:00 Room Air 05/13/17 07:12 36.7 91 18 163/84 (110) 96 Room Air 05/13/17 04:00 96 Room Air 05/13/17 04:00 36.8 94 18 142/87 (105) 94 Room Air 05/13/17 00:00 96 Room Air 05/13/17 00:00 36.5 89 16 151/76 (101) 94 Room Air 05/12/17 20:00 96 Room Air 05/12/17 20:00 37.0 68 18 179/91 (120) 100 Room Air 05/12/17 16:00 Room Air 05/12/17 15:05 36.8 79 18 149/81 (103) 96 Room Air Physical Exam General Appearance: no apparent distress Respiratory/Chest: no respiratory distress, no accessory muscle use Abdomen: non tender, soft, + abnormal bowel sounds (hyperactive) Laboratory Results Last 24 Hours Test 05/13/17 05:57 White Blood Count 13.56 K/uL Red Blood Count 3.59 M/uL Hemoglobin 11.9 g/dL Hematocrit 34.0 % Mean Corpuscular Volume 94.7 fL Mean Corpuscular Hemoglobin 33.1 pg Mean Corpuscular Hemoglobin Concent 35.0 g/dl RDW Standard Deviation 45.2 fL RDW Coefficient of Variation 13.1 % Platelet Count 323 K/uL Mean Platelet Volume 9.2 fL Sodium Level 142 mmol/L Potassium Level 3.3 mmol/L Chloride Level 109 mmol/L Carbon Dioxide Level 25 mmol/L Anion Gap 8.0 mmol/L Blood Urea Nitrogen 2 mg/dl Creatinine 0.38 mg/dl Est Creatinine Clear Calc Drug Dose 159.8 ml/min Estimated GFR () 131.6 Estimated GFR (Non- 113.5 BUN/Creatinine Ratio 5.6 Random Glucose 88 mg/dl Calcium Level 8.0 mg/dl Magnesium Level 1.8 mg/dl Assessment and Plan Sepsis secondary to Campylobacter Enteritis 05/13 Azithromycin for a total of five days replace K and Mg likely d/c in AM with Bentyl, Lomotil, Azithro, and Potassium 05/12 +campylobacter culture appreciate GI input Cipro + Flagyl changed to Azithromycin continue IVFs Bentyl and Lomotil replace K 05/11 infectious colitis; likely viral gastroenteritis will continue abx for now WBC trending down replace K give full liquid diet Lomotil as needed IVFs 05/10 C. diff negative stool studies pending leukocytosis - improving afebrile tachycardia improving continue IVFs, supportive care IV abx. Cipro + Flagyl GI consultation pending Hypokalemia due to diarrhea, replace and recheck Chest Pain, unlikely ACS cardiac enzymes negative, echo with no significant findings HTN BP controlled will continue Lisinopril, holding HCTZ due to clinical dehydration Hx. of RA holding methotrexate due to infection continue Prednisone; no role for stress dose steroids at this time Depressed Mood patient tearful during exam about high stress due to taking care of her mother no suicidal thoughts offered mental health consult, patient declined DVT ppx Lovenox FULL CODE
[2017-05-13] MEDS: ENOXAPARIN 40 MG/0.4 ML SYR SC SCH (19:44)
[2017-05-14] MEDS: SODIUM CHLORIDE 0.9% 1000ML 1,000 ML IV SCH ×2 (00:07→08:02)
[2017-05-14] MEDS: DICYCLOMINE HCL 10 MG CAP PO SCH ×2 (00:08→06:06)
[2017-05-14] MEDS: LOPERAMIDE HCL 2 MG CAP PO PRN ×3 (00:09→08:04)
[2017-05-14 04:12] VITALS: BP 192/96; PULSE 97; TEMP 36.9; O2SAT 95
[2017-05-14 06:21] VITALS: BP 137/65
[2017-05-14 06:57] LABS: HEMATOCRIT 35.8 % (37-47); MEAN CELL VOLUME 95.2 fL (80-100); MEAN CORPUSCULAR HEMOGLOBIN 33.2 pg (25-34); MEAN CORPUSCULAR HGB CONC 34.9 g/dl (32-36); MEAN PLATELET VOLUME 9.5 fL (7.4-10.4); PLATELET COUNT 341 K/uL (130-400); RED BLOOD COUNT 3.76 M/uL (4.2-5.4); WHITE BLOOD COUNT 14.34 K/uL (4.8-10.8)
[2017-05-14 07:01] VITALS: BP 147/76; PULSE 92; TEMP 36.9; O2SAT 96
[2017-05-14 07:29] LABS: BUN/CREATININE RATIO 5.8 (10-20); CREATININE 0.36 mg/dl (0.60-1.20); MAGNESIUM 1.7 mg/dl (1.8-2.4); POTASSIUM 3.5 mmol/L (3.5-5.1)
[2017-05-14 08:00] VITALS: O2SAT 96
[2017-05-14] MEDS: MULTIVITAMIN TAB PO SCH (08:03)
[2017-05-14] MEDS: POTASSIUM CHLORIDE 20 MEQ TABCR PO SCH (08:03)
[2017-05-14] MEDS: LISINOPRIL 10 MG TAB PO SCH (08:04)
[2017-05-14] MEDS: AZITHROMYCIN 250 MG TAB PO SCH (08:04)
[2017-05-14] MEDS: MAGNESIUM SULFATE 1GM / D5W 1 GM in PREMIXED IN D5W 100 ML IV SCH ×2 (08:39→09:51)
[2017-05-14] MEDS: POTASSIUM CHLORIDE 10 MEQ TABCR PO SCH (09:51)
--- NOTE | 2017-05-14 10:46 | Progress Note ---
Subjective Date of Service: May 14, 2017. Subjective Pt evaluation today including: conversation w/ patient, physical exam, lab review, review of studies, review of inpatient medication list Saw/examined the patient in room 283 +diarrhea persists No fevers/chills no chest pain/shortness of breath Review of Systems Constitutional: No fever, No chills Respiratory: No shortness of breath Cardiac: No chest pain Abdomen: + diarrhea, No pain, No nausea, No vomiting, No constipation, No GI bleeding Medications Current Inpatient Medications Medications (Trade) Dose Ordered Sig/Maryam Route Start Time Stop Time Status Last Admin Dose Admin Enoxaparin Sodium (Lovenox Inj) 40 mg Q24H SC 05/09/17 20:00 06/08/17 19:59 05/13/17 19:44 40 MG Sodium Chloride 1,000 ml @ 125 mls/hr Q8H IV 05/09/17 16:29 06/08/17 16:28 05/14/17 08:02 125 MLS/HR Acetaminophen (Tylenol Tab) 650 mg Q4H PRN PO 05/09/17 16:30 06/08/17 16:29 05/12/17 19:52 650 MG Ondansetron HCl (Zofran Inj) 4 mg Q6H PRN IV 05/09/17 16:30 06/08/17 16:29 05/11/17 20:02 4 MG Folic Acid (Folvite Tab) 1 mg DAILY PO 05/10/17 09:00 06/09/17 08:59 05/14/17 08:03 1 MG Multivitamins (Multivitamin Tab) 1 tab DAILY PO 05/10/17 09:00 06/09/17 08:59 05/14/17 08:03 1 TAB Prednisone (PredniSONE TAB) 5 mg DAILY PO 05/10/17 09:00 06/09/17 08:59 05/14/17 08:04 5 MG Lisinopril (Zestril Tab) 10 mg QAM PO 05/10/17 09:00 06/09/17 08:59 05/14/17 08:04 10 MG Morphine Sulfate (MoRPHine SULFATE INJ) 3 mg Q4H PRN IV 05/09/17 17:45 05/23/17 17:44 Loperamide HCl (Imodium Cap) 2 mg UD PRN PO 05/10/17 01:00 06/09/17 00:59 05/14/17 08:04 2 MG Dicyclomine HCl (Bentyl Cap) 10 mg Q6HWA PO 05/11/17 12:00 06/10/17 11:59 05/14/17 06:06 10 MG Potassium Chloride (Klor-Con M10) 20 meq 0945 PO 05/12/17 09:45 06/11/17 09:44 05/14/17 09:51 20 MEQ Azithromycin (Zithromax Tab) 500 mg QAM PO 05/12/17 12:00 05/22/17 11:59 05/14/17 08:04 500 MG Potassium Chloride (Klor-Con Tab) 20 meq QAM PO 05/13/17 09:00 06/12/17 08:59 05/14/17 08:03 20 MEQ Magnesium Sulfate 1 gm/Prmx 100 ml @ 100 mls/hr Q1H IV 05/14/17 09:00 05/14/17 10:59 05/14/17 09:51 100 MLS/HR Objective Vital Signs Date Time Temp Pulse Resp B/P (MAP) Pulse Ox O2 Delivery O2 Flow Rate FiO2 05/14/17 08:00 96 Room Air 05/14/17 07:01 36.9 92 18 147/76 (99) 96 Room Air 05/14/17 06:21 137/65 (89) 05/14/17 04:12 36.9 97 20 192/96 (128) 95 Room Air 05/14/17 04:00 Room Air 05/14/17 00:00 Room Air 05/13/17 23:44 37.0 99 18 167/72 (103) 94 Room Air 05/13/17 20:00 36.9 96 20 152/82 (105) 96 Room Air 05/13/17 20:00 Room Air 05/13/17 16:03 88 149/82 (104) 05/13/17 16:00 Room Air 05/13/17 15:48 36.7 101 20 180/75 (110) 93 05/13/17 12:00 Room Air Physical Exam General Appearance: no apparent distress Respiratory/Chest: no respiratory distress, no accessory muscle use Abdomen: non tender, soft, + abnormal bowel sounds (hyperactive bowel sounds) Laboratory Results Last 24 Hours Test 05/14/17 06:31 White Blood Count 14.34 K/uL Red Blood Count 3.76 M/uL Hemoglobin 12.5 g/dL Hematocrit 35.8 % Mean Corpuscular Volume 95.2 fL Mean Corpuscular Hemoglobin 33.2 pg Mean Corpuscular Hemoglobin Concent 34.9 g/dl RDW Standard Deviation 45.9 fL RDW Coefficient of Variation 13.3 % Platelet Count 341 K/uL Mean Platelet Volume 9.5 fL Sodium Level 142 mmol/L Potassium Level 3.5 mmol/L Chloride Level 107 mmol/L Carbon Dioxide Level 27 mmol/L Anion Gap 8.0 mmol/L Blood Urea Nitrogen 2 mg/dl Creatinine 0.36 mg/dl Est Creatinine Clear Calc Drug Dose 167.2 ml/min Estimated GFR () 133.9 Estimated GFR (Non- 115.6 BUN/Creatinine Ratio 5.8 Random Glucose 87 mg/dl Calcium Level 8.0 mg/dl Magnesium Level 1.7 mg/dl Assessment and Plan Sepsis secondary to Campylobacter Enteritis will discharge on Azithromycin, Bentyl, Lomotil and potassium tablets patient still has diarrhea, but improving slightly, no fevers/chills, no signs of systemic infection outpatient follow-up with PCP should have colonoscopy in 4-6 weeks after infection clears 05/13 Azithromycin for a total of five days replace K and Mg likely d/c in AM with Bentyl, Lomotil, Azithro, and Potassium 05/12 +campylobacter culture appreciate GI input Cipro + Flagyl changed to Azithromycin continue IVFs Bentyl and Lomotil replace K 05/11 infectious colitis; likely viral gastroenteritis will continue abx for now WBC trending down replace K give full liquid diet Lomotil as needed IVFs 05/10 C. diff negative stool studies pending leukocytosis - improving afebrile tachycardia improving continue IVFs, supportive care IV abx. Cipro + Flagyl GI consultation pending Hypokalemia due to diarrhea, replace and recheck Chest Pain, unlikely ACS cardiac enzymes negative, echo with no significant findings HTN BP controlled will continue Lisinopril, holding HCTZ due to clinical dehydration Hx. of RA holding methotrexate due to infection continue Prednisone; no role for stress dose steroids at this time Depressed Mood patient tearful during exam about high stress due to taking care of her mother no suicidal thoughts offered mental health consult, patient declined DVT ppx Lovenox FULL CODE
[2017-05-14] MEDS ORDERED: MCRK20 PO (10:55)
[2017-05-14] MEDS ORDERED: ZTHM250 PO (10:55)
[2017-05-14] MEDS ORDERED: BNT10 PO (10:55)
--- NOTE | 2017-05-14 10:59 | Discharge Instructions ---
Discharge Instructions Date of Service May 14, 2017. Admission Reason for Admission: Colitis Discharge Discharge Diagnosis / Problem: Campylobacter Enteritis Discharge Goals Goal(s): Decrease discomfort, Improve function, Diagnostic testing, Therapeutic intervention Activity Recommendations Activity Limitations: resume your previous activity . Instructions / Follow-Up Instructions / Follow-Up Please follow-up with Dr. Alvarado on May 19 at 1:30PM * You will take Azithromycin for the next three days * take Bentyl, Imodium as needed * take Potassium supplements for the next seven days * Primary care doctor should recheck blood work (basic metabolic profile) next week * You will need a colonoscopy in 4-6 weeks Current Hospital Diet Patient's current hospital diet: Low Fiber Diet Discharge Diet Recommended Diet: Regular Diet, Full Liquid Diet Pending Studies Studies pending at discharge: no Medical Emergencies . Who to Call and When: Medical Emergencies: If at any time you feel your situation is an emergency, please call 911 immediately. . Non-Emergent Contact Non-Emergency issues call your: Primary Care Provider . . "Provider Documentation" section prepared by Nikolay Guy. . VTE Core Measure Inpt VTE Proph given/why not?: Enoxaparin (Lovenox)SQ
[2017-05-14 11:01] VITALS: BP 147/76; PULSE 92; TEMP 36.9; O2SAT 96
[2017-05-14 11:03] VITALS: BP 135/76; PULSE 91; TEMP 36.9; O2SAT 96
--- NOTE | 2017-05-14 11:03 | Discharge Summary ---
Discharge Summary Date of Service May 14, 2017. Discharge Summary Admission Date: May 09, 2017 at 16:31 Discharge Date: May 14, 2017 Discharge Disposition: Home Principal Diagnosis: Campylobacter Enteritis Medication Reconciliation New Medications: Azithromycin (Azithromycin) 250 Mg Tab 500 MG PO QAM for 3 Days, #6 TAB Dicyclomine HCl (Dicyclomine HCl) 10 Mg Cap 10 MG PO Q6H PRN for Diarrhea for 7 Days, #28 CAP Potassium Chloride (Klor-Con M20) 20 Meq Tabcr 20 MEQ PO QAM for 7 Days, #7 TAB Continued Medications: Abatacept (Orencia) 250 Mg Inj 1 DOSE MONTHLY Alendronate Sodium (Fosamax) 70 Mg Tab 1 TAB PO WK for 28 Days, #4 TAB 3 Refills Folic Acid (Folvite) 1 Mg Tab 1 TAB .ROUTE DAILY for 90 Days, #90 TAB 1 Refill Hctz/Lisinopril (Lisinopril/Hctz 10/12.5 Mg) 1 Ea Tab 1 TAB PO DAILY for 30 Days, #30 TAB 5 Refills Loperamide Hcl (Imodium) 2 Mg Cap 2 MG PO PRN for Diarrhea, CAP Methotrexate (Methotrexate) 2.5 Mg Tab 3 TABS PO WK, TAB Multivitamin (Multivitamin) Tab 1 TAB PO DAILY, TAB Ondansetron Hcl (Zofran) 4 Mg Tab 4 MG PO Q6 PRN for Nausea, TAB Prednisone (Prednisone) 5 Mg Tab 5 MG PO DAILY, TAB Admission Information HPI (per Admitting provider): 61 year old female who presents to the ER with abdominal pain, diarrhea, and fever. Patient reports symptoms have been present for the past 6 days. She was seen by her PCP a few days ago who prescribed her Zofran and Imodium. She has not had any relief in her symptoms. Patient reports her appetite has been poor due to the abdominal pain and she denies nausea and vomiting. Reports that anything she would take anything by mouth she would have crampy abdominal pain and diarrhea. She reports her temperature at her PCP appointment was 101. She reports diarrhea has been watery and she denies BRBPR and dark tarry stools. She denies any recent travel or sick contacts. Patient reports she has been having intermittent chest pain for the past several months. She reports it is located under her left breast. She describes it as sharp. She reports sometimes it occurs when bending over, sometimes at rest, and sometimes with exertion. She reports it resolves on its own quickly. She denies shortness of breath, lower extremity edema, and orthopnea. No lightheadedness, dizziness, diaphoresis , or syncope. She denies any urinary symptoms. In the ER, patient had a CT abd/ pelvis that is showing pancolitis. WBC 18K, HR is in the low 100s. BP is stable and she is afebrile. She was treated with IV Rocephin, IV Cipro, IVF, IV Morphine, and IV Zofran. Of note during exam, patient is tearful at times reporting high amounts of stress with taking care of her mother at home. She denies suicidal or homicidal ideations. Physical Exam (per Admitting): General Appearance: no apparent distress (tearful at times during exam) Head: normocephalic, atraumatic Eyes: normal inspection, sclerae normal ENT: hearing grossly normal Neck: supple, no JVD Respiratory/Chest: lungs clear, normal breath sounds, no respiratory distress Cardiovascular: regular rate, rhythm, no edema Abdomen/GI: soft, + tenderness (generally tender, more tender in the mid abdomen), + abnormal bowel sounds (hyperactive) Extremities/Musculoskelatal: normal inspection, no calf tenderness Neurologic/Psych: no motor/sensory deficits, alert, oriented x 3, + depressed affect (tearful at times during exam) Skin: normal color, warm/dry Hospital Course Sepsis secondary to Campylobacter Enteritis will discharge on Azithromycin, Bentyl, Lomotil and potassium tablets patient still has diarrhea, but improving slightly, no fevers/chills, no signs of systemic infection outpatient follow-up with PCP should have colonoscopy in 4-6 weeks after infection clears 05/13 Azithromycin for a total of five days replace K and Mg likely d/c in AM with Bentyl, Lomotil, Azithro, and Potassium 05/12 +campylobacter culture appreciate GI input Cipro + Flagyl changed to Azithromycin continue IVFs Bentyl and Lomotil replace K 05/11 infectious colitis; likely viral gastroenteritis will continue abx for now WBC trending down replace K give full liquid diet Lomotil as needed IVFs 05/10 C. diff negative stool studies pending leukocytosis - improving afebrile tachycardia improving continue IVFs, supportive care IV abx. Cipro + Flagyl GI consultation pending Hypokalemia due to diarrhea, replace and recheck Chest Pain, unlikely ACS cardiac enzymes negative, echo with no significant findings HTN BP controlled will continue Lisinopril, holding HCTZ due to clinical dehydration Hx. of RA holding methotrexate due to infection continue Prednisone; no role for stress dose steroids at this time Depressed Mood patient tearful during exam about high stress due to taking care of her mother no suicidal thoughts offered mental health consult, patient declined DVT ppx Lovenox FULL CODE Total time spent on discharge = 35 minutes This includes examination of the patient, discharge planning, medication reconciliation, and communication with other providers. Discharge Instructions Please follow-up with Dr. Alvarado on May 19 at 1:30PM * You will take Azithromycin for the next three days * take Bentyl, Imodium as needed * take Potassium supplements for the next seven days * Primary care doctor should recheck blood work (basic metabolic profile) next week * You will need a colonoscopy in 4-6 weeks
== END 2017-05-14 11:30 | disposition home or self-care (01) | DRG 872 ==
LOC: C.EDB 11:47 → C.MED 16:31 → ENRESERV 17:12
PROVIDERS: ADMIT Family Medicine; ATTEND Family Medicine
DX: A41.9 Sepsis, unspecified organism (principal); A04.5 Campylobacter enteritis; R07.9 Chest pain, unspecified; E87.6 Hypokalemia; F32.9 Major depressive disorder, single episode, unspecified; I10 Essential (primary) hypertension; M06.9 Rheumatoid arthritis, unspecified; M81.0 Age-related osteoporosis without current pathological fracture; E66.9 Obesity, unspecified; Z51.81 Encounter for therapeutic drug level monitoring; Z79.899 Other long term (current) drug therapy; Z68.35 Body mass index [BMI] 35.0-35.9, adult; Z87.891 Personal history of nicotine dependence; Z82.3 Family history of stroke; Z80.8 Family history of malignant neoplasm of other organs or systems; Z83.2 Family history of diseases of the blood and blood-forming organs and certain disorders involving the immune mechanism